=== PATIENT | female | born 1930 | race Caucasian/White ===

== ENCOUNTER 2016-11-27 16:49 | Outpatient (CLI) ==
[2013-07-14 00:04] VITALS: BMI 40.0
== END 2016-11-27 16:50 | disposition home or self-care (01) ==
LOC: CAR 16:49
PROVIDERS: ATTEND Internal Medicine
DX: G47.30 Sleep apnea, unspecified (principal)
CPT/HCPCS: 95810

== ENCOUNTER 2016-12-26 14:23 | Outpatient (CLI) ==
[2013-07-14 00:04] VITALS: BMI 40.0
== END 2016-12-26 14:24 | disposition home or self-care (01) ==
LOC: CAR 14:23
PROVIDERS: ATTEND Internal Medicine Interventional Cardiology
DX: I48.91 Unspecified atrial fibrillation (principal)
CPT/HCPCS: 93005; 93010

== ENCOUNTER 2017-01-01 15:14 | Outpatient (CLI) ==
[2013-07-14 00:04] VITALS: BMI 40.0
== END 2017-01-01 15:15 | disposition home or self-care (01) ==
LOC: CAR 15:14
PROVIDERS: ATTEND Internal Medicine Pulmonary Disease
DX: G47.33 Obstructive sleep apnea (adult) (pediatric) (principal)
CPT/HCPCS: 95811

== ENCOUNTER 2017-02-28 12:27 | Outpatient (CLI) ==
[2013-07-14 00:04] VITALS: BMI 40.0
--- NOTE | 2017-02-28 13:59 | US ---
EXAM: Bilateral lower extremity venous doppler. HISTORY: Bilateral leg pain and swelling, greater on the right. COMPARISON: 07/14/2013. TECHNIQUE: Multiple grayscale and color doppler images were obtained. FINDINGS: There is normal flow, compressibility and augmentation of flow within the right and left c ommon femoral, greater saphenous, profunda, femoral, popliteal, posterior tibial, anterior tibial and peroneal veins. IMPRESSION: No evidence for right or left lower extremity deep vein thrombosis at the levels examined.
== END 2017-02-28 12:28 | disposition home or self-care (01) ==
LOC: RAD 12:27
PROVIDERS: ATTEND Internal Medicine
DX: M79.604 Pain in right leg (principal); M79.605 Pain in left leg; M79.89 Other specified soft tissue disorders

== ENCOUNTER 2017-03-12 08:55 | Outpatient (CLI) ==
[2013-07-14 00:04] VITALS: BMI 40.0
[2017-03-12 09:17] LABS: BASOPHILS # (AUTO) 0.1 K/uL (0-0.2); BASOPHILS % (AUTO) 0.6 % (0.0-3.0); EOSINOPHILS # (AUTO) 0.2 K/ul (0.0-0.7); EOSINOPHILS % (AUTO) 2.1 % (0.0-7.0); HEMATOCRIT 33.7 % (37.0-47.0); HEMOGLOBIN 10.7 g/dl (12.0-16.0); IMMATURE GRANULOCYTE % (AUTO) 0.5 % (0.0-5.0); LYMPHOCYTES # (AUTO) 0.8 K/uL (0.60-3.4); LYMPHOCYTES % (AUTO) 10.5 (10.0-50.0); MEAN CORPUSCULAR HEMOGLOBIN 24.9 pg (27.0-31.0); MEAN CORPUSCULAR HGB CONC 31.8 (31.8-35.4); MEAN CORPUSCULAR VOLUME 78.4 fl (81.0-99.0); MONOCYTES # (AUTO) 0.9 K/uL (0.4-2.0); MONOCYTES % (AUTO) 11.4 (0-10); NEUTROPHILS # (AUTO) 5.8 K/ul (2.0-6.9); NEUTROPHILS % (AUTO) 74.9; PLATELET COUNT 217 10^3/uL (140-440); WHITE BLOOD COUNT 7.71 K/ul (4.6-10.2)
[2017-03-12 09:35] LABS: ALBUMIN 3.4 g/dL (3.4-5.0); ALBUMIN/GLOBULIN RATIO 1.21; ANION GAP 13.5; BILIRUBIN,TOTAL 0.48 mg/dL (0.00-1.20); CALCIUM 9.2 mg/dL (8.2-10.2); POTASSIUM 4.5 mmol/L (3.5-5.10); TOTAL PROTEIN 6.2 g/dL (5.8-8.1)
[2017-03-12 15:28] LABS: FERRITIN 21.06 ng/mL (4.63-204.00)
== END 2017-03-12 08:56 | disposition home or self-care (01) ==
LOC: LAB 08:55
PROVIDERS: ATTEND Internal Medicine Hematology & Oncology
DX: C18.9 Malignant neoplasm of colon, unspecified (principal); D50.9 Iron deficiency anemia, unspecified
CPT/HCPCS: 36415; 80053; 82378; 82728; 83540; 83550; 85025

== ENCOUNTER 2017-05-24 12:58 | Inpatient (IN) ==
[2017-05-24] MEDS ORDERED: DECADRON 4 MG/ML SDV IM STA (13:58)
[2017-05-24] MEDS ORDERED: XOPENEX 1.25 MG NEB PRN (14:01)
[2017-05-24] MEDS ORDERED: MORPHINE 4 MG/ML VIAL IVP PRN (14:08)
[2017-05-24] MEDS ORDERED: NITROSTAT SL PRN (14:08)
[2017-05-24] MEDS ORDERED: TYLENOL PO PRN ×2 (14:08→17:00)
[2017-05-24] MEDS ORDERED: ATROPINE SULFATE PFS IVP PRN (14:08)
[2017-05-24] MEDS ORDERED: VISTARIL INJ IM PRN (14:08)
[2017-05-24 14:57] VITALS: BMI 42.5
[2017-05-24] MEDS: LASIX IVP SCH (15:04)
[2017-05-24] MEDS ORDERED: PROAIR HFA IH PRN (15:14)
[2017-05-24] MEDS ORDERED: ULTRAM PO PRN (15:14)
--- NOTE | 2017-05-24 16:30 | DI ---
EXAM: Chest one view, frontal view only. HISTORY: Shortness of breath. COMPARISON: 04/27/2013. FINDINGS: Cardiac silhouette is enlarged although may be accentuated by portable technique. No vasc ular congestion seen. The lungs are grossly clear although evaluation of the left base and medial ri ght lung base is limited by portable technique. No large pleural effusion or pneumothorax identified . Hiatal hernia noted. No acute osseous abnormality is seen. IMPRESSION: No acute process within limitations of portable technique. If symptoms persist, PA and lateral chest radiographs would be recommended.
[2017-05-24] MEDS: XOPENEX 1.25 MG NEB SCH ×2 (16:57→22:56)
[2017-05-24] MEDS: XARELTO PO SCH (18:11)
[2017-05-24] MEDS ORDERED: ACETAMINOPHEN PO SCH (21:00)
[2017-05-24] MEDS ORDERED: VITAMIN D3 PO SCH (21:00)
[2017-05-24] MEDS ORDERED: NON-FORMULARY MEDICATION (Gabapentin [Gabapentin] 600 MG) PO SCH (21:00)
[2017-05-24] MEDS ORDERED: DIPHENHYDRAMINE PO SCH (21:00)
[2017-05-24] MEDS ORDERED: CALCIUM CARBONATE PO SCH (21:00)
[2017-05-24] MEDS ORDERED: [UNRECOGNIZED DRUG - OTHER] PO SCH (21:00)
[2017-05-24] MEDS ORDERED: [UNRECOGNIZED DRUG - OTHER] PO SCH (21:00)
[2017-05-24] MEDS: SYMBICORT 160-4.5 MCG INHALER IH SCH (22:32)
[2017-05-24] MEDS: BALANCED B-100 PO SCH (22:33)
[2017-05-24] MEDS: BENADRYL PO SCH (22:34)
[2017-05-24] MEDS: CALCIUM 500 + VIT D 200 MG TABLET PO SCH (22:34)
[2017-05-24] MEDS: NEURONTIN PO SCH (22:34)
[2017-05-24] MEDS: TYLENOL PO SCH (22:34)
[2017-05-24] MEDS: [UNRECOGNIZED DRUG - OTHER] PO SCH (22:35)
[2017-05-24] MEDS: GLUCOSAMINE PO SCH (22:35)
[2017-05-24] MEDS: D3 PO SCH (22:35)
[2017-05-24] MEDS: BOSWELLIA SERRA PO SCH (22:35)
[2017-05-25] MEDS: XOPENEX 1.25 MG NEB SCH ×4 (04:13→23:56)
[2017-05-25] MEDS: PRILOSEC PO SCH (06:22)
[2017-05-25] MEDS: LASIX IVP SCH (06:22)
[2017-05-25] MEDS: SYNTHROID PO SCH (06:23)
[2017-05-25] MEDS ORDERED: ASPIRIN EC PO SCH (08:00)
[2017-05-25] MEDS ORDERED: RIVAROXABAN PO SCH (09:00)
[2017-05-25] MEDS ORDERED: NON-FORMULARY MEDICATION (Omeprazole [Prilosec] 40 MG) PO SCH (09:00)
[2017-05-25] MEDS ORDERED: ACETAMINOPHEN 1000 MG PO SCH (09:00)
[2017-05-25] MEDS ORDERED: CALCIUM POLYCARBOPHIL 625 MG PO SCH (09:00)
[2017-05-25] MEDS ORDERED: NON-FORMULARY MEDICATION (Ascorbic Acid [Vitamin C] 1,000 MG) PO SCH (09:00)
[2017-05-25] MEDS ORDERED: NON-FORMULARY MEDICATION (Levothyroxine Sodium [Tirosint] 100 MCG) PO SCH (09:00)
[2017-05-25] MEDS: VITAMIN C PO SCH (10:21)
[2017-05-25] MEDS: SYMBICORT 160-4.5 MCG INHALER IH SCH ×2 (10:21→21:21)
[2017-05-25] MEDS: ZEBETA PO SCH (10:22)
[2017-05-25] MEDS: CALCIUM 500 + VIT D 200 MG TABLET PO SCH ×2 (10:22→21:13)
[2017-05-25] MEDS: CARDIZEM CD PO SCH (10:22)
[2017-05-25] MEDS: NEURONTIN PO SCH ×2 (10:23→21:14)
[2017-05-25] MEDS: ZYRTEC PO SCH (10:23)
[2017-05-25] MEDS: TYLENOL PO SCH ×2 (10:23→21:14)
[2017-05-25] MEDS: SPIRIVA IH SCH (10:26)
[2017-05-25] MEDS: METAMUCIL PO SCH (14:36)
[2017-05-25] MEDS: XARELTO PO SCH (17:03)
[2017-05-25] MEDS: [UNRECOGNIZED DRUG - OTHER] PO SCH (21:13)
[2017-05-25] MEDS: GLUCOSAMINE PO SCH (21:13)
[2017-05-25] MEDS: BALANCED B-100 PO SCH (21:13)
[2017-05-25] MEDS: D3 PO SCH (21:13)
[2017-05-25] MEDS: BENADRYL PO SCH (21:13)
[2017-05-25] MEDS: BOSWELLIA SERRA PO SCH (21:13)
[2017-05-26] MEDS: XOPENEX 1.25 MG NEB SCH ×4 (04:16→23:19)
[2017-05-26] MEDS: LASIX IVP SCH (06:01)
[2017-05-26] MEDS: PRILOSEC PO SCH (06:01)
[2017-05-26] MEDS: SYNTHROID PO SCH (06:01)
[2017-05-26] MEDS: CARDIZEM CD PO SCH (09:29)
[2017-05-26] MEDS: CALCIUM 500 + VIT D 200 MG TABLET PO SCH ×2 (09:29→22:18)
[2017-05-26] MEDS: ZEBETA PO SCH (09:29)
[2017-05-26] MEDS: NEURONTIN PO SCH ×2 (09:30→22:18)
[2017-05-26] MEDS: VITAMIN C PO SCH (09:30)
[2017-05-26] MEDS: ZYRTEC PO SCH (09:30)
[2017-05-26] MEDS: SPIRIVA IH SCH (09:31)
[2017-05-26] MEDS: SYMBICORT 160-4.5 MCG INHALER IH SCH ×2 (09:31→22:21)
[2017-05-26] MEDS: TYLENOL PO SCH ×2 (09:31→22:20)
[2017-05-26] MEDS: METAMUCIL PO SCH (11:55)
[2017-05-26] MEDS: XARELTO PO SCH (17:05)
[2017-05-26] MEDS: BENADRYL PO SCH (22:18)
[2017-05-26] MEDS: BALANCED B-100 PO SCH (22:18)
[2017-05-26] MEDS: BOSWELLIA SERRA PO SCH (22:21)
[2017-05-26] MEDS: GLUCOSAMINE PO SCH (22:21)
[2017-05-26] MEDS: D3 PO SCH (22:21)
[2017-05-26] MEDS: [UNRECOGNIZED DRUG - OTHER] PO SCH (22:21)
[2017-05-27] MEDS: XOPENEX 1.25 MG NEB SCH ×4 (05:35→22:19)
[2017-05-27] MEDS: PRILOSEC PO SCH (05:50)
[2017-05-27] MEDS: SYNTHROID PO SCH (05:50)
[2017-05-27] MEDS: LASIX IVP SCH (05:50)
[2017-05-27] MEDS: NEURONTIN PO SCH ×2 (08:57→20:57)
[2017-05-27] MEDS: VITAMIN C PO SCH (08:57)
[2017-05-27] MEDS: ZYRTEC PO SCH (08:58)
[2017-05-27] MEDS: TYLENOL PO SCH ×2 (08:58→20:58)
[2017-05-27] MEDS: ZEBETA PO SCH (08:58)
[2017-05-27] MEDS: CALCIUM 500 + VIT D 200 MG TABLET PO SCH ×2 (08:58→20:57)
[2017-05-27] MEDS: CARDIZEM CD PO SCH (08:58)
[2017-05-27] MEDS: SYMBICORT 160-4.5 MCG INHALER IH SCH ×2 (08:58→20:57)
[2017-05-27] MEDS: SPIRIVA IH SCH (09:00)
[2017-05-27] MEDS: METAMUCIL PO SCH ×2 (12:40→14:09)
[2017-05-27] MEDS: XARELTO PO SCH (16:16)
[2017-05-27] MEDS: GLUCOSAMINE PO SCH (20:59)
[2017-05-27] MEDS: BOSWELLIA SERRA PO SCH (20:59)
[2017-05-27] MEDS: [UNRECOGNIZED DRUG - OTHER] PO SCH (20:59)
[2017-05-27] MEDS: BENADRYL PO SCH (20:59)
[2017-05-27] MEDS: D3 PO SCH (20:59)
[2017-05-27] MEDS: BALANCED B-100 PO SCH (21:02)
[2017-05-28] MEDS: XOPENEX 1.25 MG NEB SCH ×2 (05:05→11:11)
[2017-05-28] MEDS: SYNTHROID PO SCH ×2 (05:28→06:42)
[2017-05-28] MEDS: PRILOSEC PO SCH ×2 (05:28→06:42)
[2017-05-28] MEDS: LASIX IVP SCH ×2 (05:28→06:41)
[2017-05-28] MEDS: TYLENOL PO SCH (09:08)
[2017-05-28] MEDS: VITAMIN C PO SCH (09:08)
[2017-05-28] MEDS: SPIRIVA IH SCH (09:08)
[2017-05-28] MEDS: CALCIUM 500 + VIT D 200 MG TABLET PO SCH (09:08)
[2017-05-28] MEDS: NEURONTIN PO SCH (09:08)
[2017-05-28] MEDS: ZYRTEC PO SCH (09:08)
[2017-05-28] MEDS: CARDIZEM CD PO SCH (09:08)
[2017-05-28] MEDS: ZEBETA PO SCH (09:08)
[2017-05-28] MEDS: SYMBICORT 160-4.5 MCG INHALER IH SCH (09:08)
[2017-05-28 09:46] VITALS: BP 101/36; TEMP 98.1
--- NOTE | 2017-05-28 10:43 | CM.DICTOOL ---
ADMISSION: 05/24/17 12:58 DISCHARGE: 05/28/17 FINAL DIAGNOSIS CHF HYPERTENSION ATRIAL FIBRILLATION COPD HYPERLIPIDEMIA OSTEOPENIA NEUROPATHY OSTEOARTHRITIS GERD ANXIETY SLEEP APNEA, C-PAP COLORECTAL CANCER, 2007 HEMICOLECTOMY, RIGHT 2007 LAST VITALS Temp Pulse Resp BP Pulse Ox 98.1 F 77 20 101/36 L 98 05/28/17 09:46 05/28/17 09:46 05/28/17 09:46 05/28/17 09:46 05/28/17 09:46 ACTIVE HOME MEDICATIONS Acetaminophen (Tylenol) 1,000 mg PO DAILY [facility] Last Admin: 05/28/17 09:08 Dose: 1,000 mg Acetaminophen (Tylenol) 500 mg PO BEDTIME [facility] Last Admin: 05/27/17 20:58 Dose: 500 mg Acetaminophen (Tylenol) 650 mg PO Q4H PRN PRN Reason: Headache Albuterol Sulfate (Proair Hfa) 2 puff IH QID PRN PRN Reason: SOA/wheezing Albuterol Sulfate 0.083% nebs INH QID PRN Ascorbic Acid (Vitamin C) 1,000 mg PO DAILY [facility] Last Admin: 05/28/17 09:08 Dose: 1,000 mg Bisoprolol Fumarate (Zebeta) 10 mg PO DAILY [facility] Last Admin: 05/28/17 09:08 Dose: 10 mg Budesonide/Formoterol Fumarate (Symbicort 160-4.5 Mcg Inhaler) 2 puff IH BID [facility] Last Admin: 05/28/17 09:08 Dose: 2 puff Calcium/Vitamin D (Calcium 500 + Vit D 200 Mg Tablet) 1 each PO BID [facility] Last Admin: 05/28/17 09:08 Dose: 1 each Calcium Polycarbohpil (Fibertab) 625mg PO Daily Cetirizine HCl (Zyrtec) 10 mg PO DAILY [facility] Last Admin: 05/28/17 09:08 Dose: 10 mg Diltiazem HCl (Cardizem Cd) 120 mg PO DAILY [facility] Last Admin: 05/28/17 09:08 Dose: 120 mg Diphenhydramine HCl (Benadryl) 25 mg PO BEDTIME [facility] Last Admin: 05/27/17 20:59 Dose: 25 mg Gabapentin (Neurontin) 600 mg PO BID [facility] Last Admin: 05/28/17 09:08 Dose: 600 mg Levothyroxine Sodium (Synthroid) 100 mcg PO QDAC [facility] Last Admin: 05/28/17 06:42 Dose: 100 mcg Non-Formulary Medication (Glucosamine/D3/Boswellia Becca [Glucosamine Complex Tablet]) 1,500 mg PO BEDTIME [facility] Last Admin: 05/27/17 20:59 Dose: Not Given Omeprazole (Prilosec) 40 mg PO QDAC [facility] Last Admin: 05/28/17 06:42 Dose: 40 mg Rivaroxaban (Xarelto) 15 mg PO QPM [facility] Last Admin: 05/27/17 16:16 Dose: 15 mg Tiotropium Carlin (Spiriva) 1 cap IH DAILY [facility] Last Admin: 05/28/17 09:08 Dose: 1 cap Tramadol HCl (Ultram) 50 mg PO BID PRN PRN Reason: pain Vitamin B Complex (Balanced B-100) 1 tab PO BEDTIME [facility] Last Admin: 05/27/17 21:02 Dose: 1 tab ALLERGIES adhesive Adverse Reaction (Verified 07/13/13 23:09) Penicillins Adverse Reaction (Verified 04/27/13 22:31) sulfamethoxazole [From Bactrim] Adverse Reaction (Verified 04/27/13 22:31) trimethoprim [From Bactrim] Adverse Reaction (Verified 04/27/13 22:31) NEW PRESCRIPTIONS: NEW MEDICATIONS: NEW MEDICATIONS: 1. LASIX 2OMG TAKE 1 TABLET DAILY 2. K-TAB 20MEQ TAKE 1 TABLET DAILY 3. BISOPROLOL 10MG TAKE 1 TABLET DAILY. SMOKING: N/A DISEASE SPECIFIC EDUCATION: CHF MEDICATIONS DIET ACTIVITY IMPORTANCE OF ELEVATING LEGS, MONITORING WEIGHT, AVOIDING SALT, TAKING MEDICATIONS PRESCRIBED LAB REVIEW: 05/28/17 04:10 05/28/17 04:10 05/28/17 04:10: Sodium 139, Potassium 3.7, Chloride 98, Carbon Dioxide 33 H, Anion Gap 11.7, BUN 20 H, Creatinine 1.10, Estimated GFR (MDRD) 47.00, BUN/ Creatinine Ratio 18.18, Glucose 115, Calcium 9.8, Total Bilirubin 0.5, AST 19, ALT 20, Alkaline Phosphatase 51 L, Total Protein 6.2, Albumin 3.4, Globulin 2.8 , Albumin/Globulin Ratio 1.21 05/28/17 04:10: WBC 9.01, RBC 4.49, Hgb 13.0, Hct 39.9, MCV 88.9, MCH 29.0, MCHC 32.6, RDW Coeff of Bk 19.3 H, Plt Count 187, Immature Gran % (Auto) 0.4, Neut % (Auto) 72.3, Lymph % (Auto) 12.3, [place] % (Auto) 12.1 H, Eos % (Auto) 2.3 , Baso % (Auto) 0.6, Immature Gran # (Auto) 0.0, Neut # 6.5, Lymph # 1.1, Fillmore # 1.1, Eos # 0.2, Baso # 0.1 PLAN: DISCHARGE HOME TODAY. CONTINUE HOME MEDICATIONS PER NURSING SHEETS EXCEPT: 1. STOP THE BISOPROLOL/HYDROCHLORTHIAZIDE (BISOPROLOL-HCTZ). NEW MEDICATIONS: 1. LASIX 2OMG TAKE 1 TABLET DAILY 2. K-TAB 20MEQ TAKE 1 TABLET DAILY 3. BISOPROLOL 10MG TAKE 1 TABLET DAILY. DIET: CARDIAC DIET; ACTIVITY: GRADUALLY INCREASE ACTIVITY. AVOID EXTREME COLD AND CROWDS. KEEP LEGS ELEVATED MUCH POSSIBLE. FOLLOW UP WITH DR. ORTIZ ON SundayMay AT 1145AM. IF UNABLE TO KEEP THIS APPOINTMENT PLEASE CALL TO RESCHEDULE AT [phone]. ALERT AND ORIENTED X 4. [place]. DR. ORTIZ IN TO SEE PATIENT. PATIENT STATES FEELING BETTER. STATES READY TO GO HOME. PLAN OF CARE DISCUSSED PER DR. ORTIZ INCLUDING DISCHARGE, NEW MEDICATIONS AND FOLLOW UP. PATIENT VERBALIZES UNDERSTANDING AND IS AGREEABLE. VITAL SIGNS ARE STABLE. IS AFEBRILE. POX 95% ON 2L/C. HEART TONES ARE IRREGULAR WITH TELEMETRY REVEALING AFIB. LUNGS HAVE A FAINT WHEEZE OCCASIONALLY. DYSPNEIC WITH ACTIVITY. HAS NON-PRODUCTIVE COUGH. IS UNABLE TO LIE FLAT. ABDOMEN IS SOFT, NON-TENDER WITH BOWEL SOUNDS POSITIVE IN ALL 4 QUADS. LAST BM DOCUMENTED 05/27/17. PEDAL PULSES ARE POSITIVE WITH NON- PITTING EDEMA TO BILATERAL LOWER EXTREMITIES. HAS SCATTERED SCRATCHES TO BILATERAL UPPER AND LOWER EXTREMITIES THAT SHE STATES IF FROM HER DOG. HAS SALINE LOCK TO LEFT HAND SITE IS CLEAR. IS A FALL RISK WITH FALL PRECAUTIONS IN USE. IS STAND BY ASSIST WITH USE OF ROLLING WALKER WITH STEADY SLOW GAIT. DR. GUMARO ORTIZ MD Reza NICK APRN
--- NOTE | 2017-05-29 07:21 | PN ---
DATE OF SERVICE: 05/25/17 SUBJECTIVE: The patient was hospitalized yesterday with leg swelling, shortness of breath, PND and orthopnea. The patient's BNP with 395. The patient on IV Lasix has improved a lot. The swelling in the legs has practically resolved with trace edema left. No evidence of any oozing or water from any of the legs. She doesn' t have any orthopnea anymore. She feels and talks full sentences. PHYSICAL EXAMINATION: HEENT: Head normocephalic, atraumatic. Eyes: Extraocular muscles are intact. Pupils are equal, round and reactive to light and accommodation. Ears: No lesions. Nose appeared normal. Throat: No exudate or erythema. NECK: Supple. No JVD, no carotid bruit. No lymphadenopathy or thyromegaly. LUNGS: Clear to auscultation. Percussion note normal. Chest symmetrical. HEART: S1, S2, no S3. Grade I/ systolic murmurs. 80-90 per minute. No cyanosis or clubbing. No ascites. Pulses: Dorsalis pedis and posterior tibial pulses +1 to +2 both sides. ABDOMEN: Soft. Nontender. Bowel sounds active. No CVA tenderness. No mass felt. EXTREMITIES: No edema. Full range of motion of all extremities, equal. NEUROLOGIC: No focal deficit. Cranial nerves II through XII are grossly intact. No headache, no double vision or headache. SKIN: Not dry. Intact. Turgor - normal. LYMPHATIC: No palpable lymph nodes/no lymphedema. MUSCULOSKELETAL: Normal joints with no swelling. Muscle tone is normal. ASSESSMENT: 1. CHF under control 2. Leg edema resolved 3. COPD under control PLAN: 1. Continue Lasix 2. Will do echocardiogram to evaluate LV function 3. CHF education carried out. CONDITION: Stable. TIME SPENT: More than 30 minutes. Plan and coordination of the patient's care discussed in the presence of nurse. RUDY
--- NOTE | 2017-05-29 11:08 | PN ---
DATE OF SERVICE: 05/27/17 SUBJECTIVE: 87 year old white female hospitalized with CHF, shortness of breath, fluid retention and atrial fibrillation with increased ventricular response. The patient's condition has steadily improved. REVIEW OF SYSTEMS: CONSTITUTIONAL: No night sweats. No fatigue, malaise, lethargy. No fever or chills. HEENT: Eyes: No visual changes. No eye pain. No eye discharge. ENT: No runny nose. No epistaxis. No sinus pain. No sore throat. No odynophagia. No congestion. RESPIRATORY: No cough, no congestion. No hemoptysis. No shortness of breath. CARDIOVASCULAR: No angina symptoms. No CHF symptoms. No atypical chest pain for CAD. No palpitations. No orthopnea. GASTROINTESTINAL: No abdominal pain. No nausea or vomiting. No diarrhea or constipation. No hematemesis. No hematochezia. GENITOURINARY: No urgency. No frequency. No dysuria. No hematuria. No obstructive symptoms. No discharge. No pain. No significant abnormal bleeding. MUSCULOSKELETAL: No musculoskeletal pain; no joint swelling. NEUROLOGICAL: No headache. No neck pain. No syncope. No seizures. No dizziness. PSYCHIATRIC: Not anxious. No depression. No suicidal thoughts. No homicidal thoughts. SKIN: No rash. No lesions. No wounds. ENDOCRINE: No unexplained weight loss. No weight gain. HEMATOLOGIC/LYMPHATIC: No anemia. No purpura. No petechiae. No prolonged or excessive bleeding. No palpable lymph nodes. PHYSICAL EXAMINATION: GENERAL: The patient is oriented to time, place and person. VITAL SIGNS: Temperature 97.4, pulse 100, respiratory rate 18, blood pressure 103/60 and pulse ox 97%. HEENT: Head normocephalic, atraumatic. Eyes: Extraocular muscles are intact. Pupils are equal, round and reactive to light and accommodation. Ears: No lesions. Nose appeared normal. Throat: No exudate or erythema. NECK: Supple. No JVD, no carotid bruit. No lymphadenopathy or thyromegaly. LUNGS: Decreased breath sounds but clear to auscultation. Percussion note normal. Chest symmetrical. HEART: S1, S2, no S3. No murmurs. No cyanosis or clubbing. No ascites. Pulses: Dorsalis pedis and posterior tibial pulses +1 to +2 both sides. ABDOMEN: Soft. Nontender. Bowel sounds active. No CVA tenderness. No mass felt. EXTREMITIES: No edema. Full range of motion of all extremities, equal. NEUROLOGIC: No focal deficit. Cranial nerves II through XII are grossly intact. No headache, no double vision or headache. SKIN: Not dry. Intact. Turgor - normal. LYMPHATIC: No palpable lymph nodes/no lymphedema. MUSCULOSKELETAL: Normal joints with no swelling. Muscle tone is normal. LABS: Hgb 12.3, hct 37, WBC 9,700 normal differential ASSESSMENT: 1. CHF, resolved 2. Atrial fibrillation under control 3. Shortness of breath, resolved 4. Leg edema resolved PLAN: 1. Discharge the patient home 2. Will do echo before discharge 3. CHF education carried out 4. The patient's other problem is her BMI is 42 which is morbidly obese. Advised to lose weight. Weight loss diet discussed. 5. The daughter was explained about all medications and side effects. 6. The patient needs to be on Xarelto 20mg daily not 15mg twice a day CONDITION: Stable. TIME SPENT: More than 30 minutes. Plan and coordination of the patient's care discussed in the presence of nurse. RUDY
--- NOTE | 2017-05-29 15:27 | HP ---
DATE OF SERVICE: 05/24/17 HISTORY OF PRESENT ILLNESS: 87-year-old female that is more short of breath, right leg weeping that started last night, times several days; gained 61 lbs according to scale at home in the past 2 to 3 days, orthopnea (3 pillows). PAST MEDICAL HISTORY: CHF Hypertension COPD Hyperlipidemia Osteopenia Neuropathy Osteoarthritis GERD Anxiety Sleep apnea, CPAP Colorectal cancer, 2007 PAST SURGICAL HISTORY: Hemicolectomy, right 2007 Cataracts, bilateral, 2002 Partial hysterectomy Bilateral knee replacements 2011 Right HIp replacement REVIEW OF SYSTEMS: CONSTITUTIONAL: Positive for fatigue. No fever. HEENT: No sinus drainage, no sore throat. RESPIRATORY: Mild cough. No hemoptysis. CARDIOVASCULAR: Positive for shortness of breath. No atypical chest pain for coronary artery disease. No angina, CHF symptoms or palpitations. GASTROINTESTINAL: No melena or abdominal pain. No GERD. GENITOURINARY: No hematuria, no polyuria. SETUP OPERATOR: No blackout, no dizziness, no headache, no double vision. MUSCULOSKELETAL: Osteoarthritic pain. ENDOCRINE: Weight gain of 6 lbs. SKIN: Not dry, no rash. PSYCHIATRIC: Not anxious, no depression, no suicidal thoughts, no homicidal thoughts. SOCIAL HISTORY: Nonsmoker. . No alcohol use. FAMILY HISTORY: Hypertension - all family; Brother with lung cancer, renal disease; diabetes in grandmother and siblings, hypothyroidism in mother. Family history of breast, colon, prostate and lung cancer. MEDICATIONS: Tylenol p.r.n. one at night p.r.n. Bisoprolol-Hydrochlorothiazide 5-6.25 mg tablet Amiodarone 200 mg twice daily Xarelto 15 mg tablet one tablet p.o. two times per day Diltiazem HCI 120 mg one p.o. one time per day Spiriva with Handi-Haler 18 mcg capsule with inhalation device one capsule once daily Symbicort 160-4.5 mcg/actuation two puffs two times per day in the morning and evening Vitamin D Synthroid 50 mcg one tablet 50 mcg p.o. once daily ProAir HFA 90 mcg/actuation HFA two puffs by inhalation route every 4-6 hours as needed Omeprazole 40 mg one p.o. once daily before a meal Nebulizer treatment q.i.d. Albuterol ALLERGIES: PENICILLINS, ADHESIVE, SULFAMETHOXAZOLE, TRIMETHOPRIM PHYSICAL EXAMINATION: V/S: Pulse 100, B/P 120/70, temperature 96.8, 02 sat 91% on 02 at 2L. Height 5'5 ", BMI 252, weight unable. GENERAL APPEARANCE: Oriented times three. HEENT: Normal. NECK: 1 cm JVP, no bruits. RESPIRATORY: Lungs have decreased breath sounds with creps at bases. CARDIOVASCULAR: S1, S2, no S3, atrial fib. No murmurs. No cyanosis, clubbing. No ascites. GI/ABDOMEN: No tenderness. Bowel sounds are active. EXTREMITIES: Edema +1 bilateral. Small blister, weeping clear liquid. Pulses +1 , equal. SETUP OPERATOR: Deep tendon reflexes, sensory, motor and gait all normal. RECTAL/PELVIC: Refused colonoscopy screening. Pelvic:Partial hysterectomy ASSESSMENT: 1. CHF 2. Atrial fibrillation with RVR 3, Hypertension 4. COPD 5. Hyperlipidemia 6. Osteopenia - neuropathy 7. Osteoarthritis 8. Right leslie colectomy 9. Anxiety 10. Cardioversion times three 11. GERD 12. Sleep apnea on CPAP 13. CHF PLAN: 1. Admit with routine telemetry orders 2. Lasix 40 mg IV now and a.m. 3. Weigh daily 4. Elevate legs 5. CHF education carried out 6. Continue all medications 7. D/C HCTZ 8. ABG with oxygen 9. PFT on 03/26/16 10. 1/2 cc Decadron IM today 11. BNP 12. T4, TSH 13. Nebs q.i.d. p.r.n. with Xopenex TIME SPENT: More than 70 minutes. MTDD
--- NOTE | 2017-05-30 14:25 | ECHO2D ---
Date of Exam: 05/28/17 Ordering Physician: GUMARO ORTIZ Room #: 110 Reason for Echo: CHF, ATRIAL FIBRILLATION M-Mode Normal Adult Results LV Dimensions Normal Adult Results AoV Opening excursions >1.6 >1.6 LVEDD-base- 3.5-5.8 4.7 Ao root dimensions 2.0-3.7 3.1 LVESD-base- 3.1-4.6 L. Atrium dimensions 1.9-3.8 5.0 Post. Wall thickness 0.8-1.1 1.1 IV septum (thickness) 0.7-1.2 1.2 Post. Wall excursion 0.72-1.3 NORMAL Septal motion 0.2 Systolic motion R. Ventricular cavity 1.5-2.0 NORMAL LVEF 60% 43% Paradoxical septal wall motion NORMAL 2-D : HYPOKINETIC SEPTUM, ENLARGED LEFT ATRIAL CAVITY--NO EFFUSION, NO THROMBUS , NORMAL VALVES, CALCIFIC MITRAL VALVE ANNULUS M-MODE: MV: CALCIFIC MITRAL VALVE ANNULUS AV: NORMAL TV: NORMAL PV: CHAMBER SIZE: ENLARGED LEFT ATRIAL CAVITY WALL MOTION: HYPOKINETIC SEPTUM PERICARDIUM: NORMAL INTERPRETATION: 1. LEFT VENTRICULAR HYPERTROPHY BORDERLINE 2. HYPOKINETIC SEPTUM WITH LEFT VENTRICULAR EJECTION FRACTION 43% 3. ENLARGED LEFT ATRIAL CAVITY 4. NORMAL VALVES MTDD
--- NOTE | 2017-05-30 15:53 | PN ---
DATE OF SERVICE: 05/26/17 SUBJECTIVE: 87 year old white female hospitalized with congestive heart failure and shortness of breath and leg edema. The patient's condition has remarkably improved. Bronchitis, chronic lung problems are much better with steroids. IV Lasix has been working good with practically no leg edema. PHYSICAL EXAMINATION: GENERAL: The patient is oriented to time, place and person. HEENT: Head normocephalic, atraumatic. Eyes: Extraocular muscles are intact. Pupils are equal, round and reactive to light and accommodation. Ears: No lesions. Nose appeared normal. Throat: No exudate or erythema. NECK: Supple. No JVD, no carotid bruit. No lymphadenopathy or thyromegaly. LUNGS: Decreased breath sounds, but more air entry. A few crepitations at the bases, dry. Percussion note normal. Chest symmetrical. HEART: S1, S2, no S3. No murmurs. No cyanosis or clubbing. No ascites. Pulses: Dorsalis pedis and posterior tibial pulses +1 to +2 both sides. ABDOMEN: Soft. Nontender. Bowel sounds active. No CVA tenderness. No mass felt. EXTREMITIES: Trace pedal edema. Full range of motion of all extremities, equal. NEUROLOGIC: No focal deficit. Cranial nerves II through XII are grossly intact. No headache, no double vision or headache. SKIN: Not dry. Intact. Turgor - normal. No ulcers oozing or fluid noted. LYMPHATIC: No palpable lymph nodes/no lymphedema. MUSCULOSKELETAL: Normal joints with no swelling. Muscle tone is normal. LABS: Hemoglobin 12.7, hematocrit 38, WBC 11,000 with normal differential. Creatinine 0.9, BUN 19, potassium 3.8. ASSESSMENT: 1. CONGESTIVE HEART FAILURE HAS RESOLVED. 2. LEG EDEMA HAS RESOLVED. 3. ATRIAL FIBRILLATION WITH NORMAL VENTRICULAR RESPONSE PLAN: 1. Continue IV Lasix. 2. Continue Steroids. 3. Education about CHF carried out. The daughter came and I explained to her all of the diagnosis and we will undergo and echocardiogram. CONDITION: Improving. TIME SPENT: More than 30 minutes. Plan and coordination of the patient's care discussed in the presence of nurse. RUDY
--- NOTE | 2017-05-31 10:07 | PN ---
DATE OF SERVICE: 05/28/17 SUBJECTIVE: 87 year old white female hospitalized with shortness of breath, congestive heart failure type of symptoms and leg edema. The patient's condition has improved remarkably. The patient is feeling a lot better. REVIEW OF SYSTEMS: CONSTITUTIONAL: No night sweats. No fatigue, malaise, lethargy. No fever or chills. HEENT: Eyes: No visual changes. No eye pain. No eye discharge. ENT: No runny nose. No epistaxis. No sinus pain. No sore throat. No odynophagia. No congestion. RESPIRATORY: No cough, no congestion. No hemoptysis. No shortness of breath. CARDIOVASCULAR: No angina symptoms. No CHF symptoms. No atypical chest pain for CAD. No palpitations. No orthopnea. GASTROINTESTINAL: No abdominal pain. No nausea or vomiting. No diarrhea or constipation. No hematemesis. No hematochezia. GENITOURINARY: No urgency. No frequency. No dysuria. No hematuria. No obstructive symptoms. No discharge. No pain. No significant abnormal bleeding. MUSCULOSKELETAL: No musculoskeletal pain; no joint swelling. NEUROLOGICAL: No headache. No neck pain. No syncope. No seizures. No dizziness. PSYCHIATRIC: Not anxious. No depression. No suicidal thoughts. No homicidal thoughts. SKIN: No rash. No lesions. No wounds. ENDOCRINE: No unexplained weight loss. No weight gain. HEMATOLOGIC/LYMPHATIC: No anemia. No purpura. No petechiae. No prolonged or excessive bleeding. No palpable lymph nodes. PHYSICAL EXAMINATION: GENERAL: The patient is oriented to time, place and person. VITAL SIGNS: Temperature 97, pulse 100 per minute, irregular, respiratory rate 20, blood pressure 137/79, pulse ox 95%. HEENT: Head normocephalic, atraumatic. Eyes: Extraocular muscles are intact. Pupils are equal, round and reactive to light and accommodation. Ears: No lesions. Nose appeared normal. Throat: No exudate or erythema. NECK: Supple. No JVD, no carotid bruit. No lymphadenopathy or thyromegaly. LUNGS: Decreased breath sounds, but clear. Percussion note normal. Chest symmetrical. HEART: S1, S2, no S3. No murmurs. No cyanosis or clubbing. No ascites. Pulses: Dorsalis pedis and posterior tibial pulses +1 to +2 both sides. ABDOMEN: Soft. Nontender. Bowel sounds active. No CVA tenderness. No mass felt. EXTREMITIES: No edema. Full range of motion of all extremities, equal. NEUROLOGIC: No focal deficit. Cranial nerves II through XII are grossly intact. No headache, no double vision or headache. SKIN: Not dry. Intact. Turgor - normal. LYMPHATIC: No palpable lymph nodes/no lymphedema. MUSCULOSKELETAL: Normal joints with no swelling. Muscle tone is normal. The patient had an echocardiogram done this morning which showed LVH with hypokinetic septum. LA cavity is some markedly enlarged. Valves are normal with calcification of mitral valve annulus. ASSESSMENT: 1. ATRIAL FIBRILLATION UNDER CONTROL 2. CONGESTIVE HEART FAILURE UNDER CONTROL 3. HYPERTENSION 4. DYSLIPIDEMIA 5. MORBID OBESITY PLAN: 1. Discharge the patient home. 2. Discontinue Ziac and will put her on Bisoprolol. 3. Place her on Lasix 20 mg. 4. K-Tab 10 mEq daily. 5. Advised to elevate the legs. 6. CHF education carried out. CONDITION: Stable. TIME SPENT: More than 30 minutes. Plan and coordination of the patient's care discussed in the presence of nurse. RUDY
--- NOTE | 2017-05-31 10:48 | DS ---
DATE OF SERVICE: 05/28/17 FINAL DIAGNOSIS: 1. CONGESTIVE HEART FAILURE 2. HYPERTENSION 3. ATRIAL FIBRILLATION 4. CHRONIC OBSTRUCTIVE PULMONARY DISEASE 5. HYPERLIPIDEMIA 6. OSTEOPENIA 7. NEUROPATHY 8. GASTROESOPHAGEAL REFLUX DISEASE 9. ANXIETY 10. SLEEP APNEA, C-PAP 11. COLORECTAL CANCER 2006 12. HEMICOLECTOMY, RIGHT 2007 VITAL SIGNS AT DISCHARGE: Temperature 98.1, pulse 77, respiratory rate 20, blood pressure 101/36, pulse ox 98%. HOME MEDICATIONS: Tylenol 1,000 mg daily Tylenol 500 mg at bedtime Tylenol 650 mg every 4 hours prn ProAir two puffs four times daily prn Albuterol Sulfate 0.083% nebs INH four times daily prn Vitamin C 1,000 daily Zebeta 10 mg daily Symbicort 160/4.5 mcg inhaler, two puffs twice daily Calcium 500 mg plus Vitamin D 200 mg twice daily Fibertab 625 mg daily Zyrtec 10 mg daily Cardizem 120 mg daily Benadryl 25 mg at bedtime Synthroid 100 mcg daily Glucosamine/D3/Boswellia Becca 1500 mg at bedtime Omeprazole 40 mg daily Xarelto 15 mg daily in p.m. Spiriva one cap IH daily Ultram 50 mg twice daily prn Vitamin B Complex one tab at bedtime ALLERGIES: Adhesive, Penicillin, Bactrim NEW PRESCRIPTIONS: Lasix 20 mg one daily K-Tab 20 mEq one daily Bisoprolol 10 mg daily PLAN: 1. Discharge home today. 2. Stop Bisoprolol/Hydrochlorothiazide. 3. Follow up with Dr. Mcbride on Sunday at 11:45 a.m. If unable to keep this appointment, please call to reschedule at [phone]. DIET INSTRUCTIONS: Cardiac diet. ACTIVITY: Gradually increase activity. Avoid extreme cold and crowds. Keep legs elevated as much as possible. DISEASE SPECIFIC EDUCATION: Carried out about congestive heart failure, medications, diet, activity and the importance of elevating the legs, monitoring weight, avoiding salt and taking medications as prescribed. HOSPITAL COURSE: 87 year old white female hospitalized with leg edema, oozing of the fluid from the leg, orthopnea. The patient was in mild CHF. BNP on admission was 398. The patient was treated with IV Lasix, salt restriction. The patient's condition is improved. The patient was taken off of Hydrochlorothiazide. Education was carried out. Echocardiogram was done which shows hypokinetic septum with ejection fraction close to 45 to 50% with enlarged LA cavity. She was explained about these findings. The patient was discharged home in stable condition and to be followed as an outpatient. She is advised to elevate her legs higher than the hip during sleep hours and also in the afternoon. She was also advised to cut down on salt intake. Congestive heart failure symptoms discussed and if they reappear, then advised to take Lasix, an extra dose for a couple of days. If she gains more than 2 to 3 pounds , she is to report it to me. Her condition at the time of discharge was stable. TIME SPENT: More than 60 minutes. RUDY
--- NOTE | 2017-05-31 10:50 | PN ---
BILLING 05/24/17 LEVEL 5 05/25/17 INTERMEDIATE 05/26/17 INTERMEDIATE 05/27/17 INTERMEDIATE 05/28/17 D MTDD
--- NOTE | 2017-05-31 12:09 | PN ---
BILLING 05/24/17 LEVEL 5 05/25/17 INTERMEDIATE 05/26/17 INTERMEDIATE 05/27/17 INTERMEDIATE 05/28/17 D MTDD
== END 2017-05-28 11:25 | disposition home or self-care (01) | DRG 293 ==
LOC: MEDSURG A 12:58
PROVIDERS: ADMIT Internal Medicine; ATTEND Internal Medicine
DX: I50.9 Heart failure, unspecified (principal); R60.0 Localized edema; R06.02 Shortness of breath; I48.91 Unspecified atrial fibrillation; I51.89 Other ill-defined heart diseases; L98.8 Other specified disorders of the skin and subcutaneous tissue; I10 Essential (primary) hypertension; J44.9 Chronic obstructive pulmonary disease, unspecified; R01.1 Cardiac murmur, unspecified; E78.5 Hyperlipidemia, unspecified; F41.9 Anxiety disorder, unspecified; G47.30 Sleep apnea, unspecified; M85.80 Other specified disorders of bone density and structure, unspecified site; G62.9 Polyneuropathy, unspecified; K21.9 Gastro-esophageal reflux disease without esophagitis; Z79.01 Long term (current) use of anticoagulants; Z99.89 Dependence on other enabling machines and devices; Z85.038 Personal history of other malignant neoplasm of large intestine; Z90.49 Acquired absence of other specified parts of digestive tract; Z79.899 Other long term (current) drug therapy
CPT/HCPCS: 36415; 80053; 81001; 82550; 82803; 83880; 84439; 84443; 84484; 85008; 85025; 93005; 93010; 94640; 97802

== ENCOUNTER 2017-10-03 10:52 | Outpatient (CLI) | payer OTHER ==
--- NOTE | 2017-10-03 13:17 | DI ---
EXAM: Chest two views HISTORY: Restrictive lung disease COMPARISON: 05/24/1927 pain TECHNIQUE: Two views of the chest were performed FINDINGS: The lungs are clear. There is no pleural effusion or pneumothorax. The heart is normal i n size. The mediastinal contour is normal, noting atherosclerosis. There are no acute abnormalities of the bones. Large hiatal hernia. IMPRESSION: 1. No acute cardiopulmonary process. 2. Large hiatal hernia.
== END 2017-10-03 10:53 | disposition home or self-care (01) ==
LOC: RAD 10:52
PROVIDERS: ATTEND Nurse Practitioner Family
DX: J98.8 Other specified respiratory disorders (principal)

== ENCOUNTER 2017-10-31 15:16 | Inpatient (IN) | payer OTHER ==
--- NOTE | 2017-10-31 16:27 | CT ---
EXAM: CT head without contrast. HISTORY: Slurred speech. Shaking. COMPARISON: 03/26/2012. TECHNIQUE: Multiple axial images of the brain were obtained from the skull base through the vertex w ithout intravenous contrast. Multiplanar reformats were provided. FINDINGS: There is no intracranial hemorrhage or extraaxial collection. The foreman-white differentiat ion is maintained without evidence for acute large vascular territory infarction. There are areas of periventricular and subcortical white matter low attenuation. The cortical sulci and cerebral ventr icles are symmetrically enlarged. The basal cisterns are well visualized. There is no hydrocephalus , mass effect, or midline shift. The paranasal sinuses and left mastoid air cells are clear. Right mastoid air cells are hypoplastic and may be opacified . The calvarium is intact. IMPRESSION: 1. No acute intracranial abnormality. 2. Chronic small vessel ischemic changes and atrophy.
--- NOTE | 2017-10-31 16:54 | ED.PDOC ---
General ED Provider: Dr. EITAN CHERY Chief Complaint: Weakness Stated Complaint: weakness, right ear pain Time Seen by Physician: 15:19 (pt has no neuro deficits on arrival) Mode of Arrival: Wheelchair Information Source: Patient, Family Exam Limitations: No limitations Primary Care Provider: GUMARO ORTIZ Nursing and Triage Documentation Reviewed and Agree: Yes Reviewed sepsis parameters & appropriate labs ordered?: Yes System Inflammatory Response Syndrome: Not Applicable Sepsis Protocol: For patient's 13 years and over: Temp is 96.8 and below OR 101 and greater Pulse >90 BPM Resp >20/minute Acutely Altered Mental Status Are patient's symptoms suggestive of a new infection, such as: -Pneumonia -Skin, Soft Tissue -Endocarditis -UTI -Bone, Joint Infection -Implantable Device -Acute Abdominal Infection -Wound Infection -Meningitis -Blood Stream Catheter Infection -Unknown Neurological Complaint Exam - Weakness Complaint/Exam Last Known Well: 2 days ago also c/o a dull right pain off/on Onset: Gradual Duration: 2 days Symptoms Are: Still present Timing: Intermittent Episodes Lasting: Days Initial Severity: Moderate Current Severity: Mild Character: Reports: Lightheaded, Weak. Denies: Head spinning, Room spinning, Dizzy Aggravating: Reports: Exertion. Denies: Headache, Position change, Supine to erect, Change in head position Alleviating: Reports: None Associated Signs and Symptoms: Denies: Nausea, Vomiting, Diaphoresis, Tinnitus, Chest pain, Short of air, Palpitations, Unsteady gait, GI blood loss, Visual changes, Decreased oral intake, Change in medication, Change in diet, OTC meds, Loss of balance Cardiac Risk Factors: Reports: Hypertension, Elevated lipids CVA Risk Factors: Reports: Diabetes, Hypertension Related Surgical History: Reports: None JVD Present: No Carotid Bruit Present: No Glascow Coma Scale (see protocol): 15 and negative deficits Nystagmus Present: No Gag Reflex Present: Yes Meningeal Signs Positive: No Focal Weakness: Present: None Focal Sensory Loss: Present: None Gait: Unable [id number]: Normal Findings Romberg Test Positive: No (unable to asses ) Babinski Sign: Negative Right, Negative Left Heel to Toe Normal: No (see above) Differential Diagnoses: Dysrhythmia, Hypovolemia, Metabolic abnormalities, Vasovagal reaction Quality Indicators for Cardiac Chest Pain: EKG in 10min. Quality Indicators for AMI: EKG in 10min. Quality Indicator For Non-Traumatic Chest Pain/Syncope: EKG Performed Review of Systems - Review Of Systems Constitutional: Reports: Malaise, Weakness Eyes: Reports: No symptoms Ears, Nose, Mouth, Throat: Reports: Ear pain (right) Respiratory: Reports: No symptoms Cardiac: Reports: No symptoms GI: Reports: No symptoms : Reports: No symptoms Musculoskeletal: Reports: No symptoms Skin: Reports: No symptoms Neurological: Reports: No symptoms Endocrine: Reports: No symptoms Hematologic/Lymphatic: Reports: No symptoms All Other Systems: Reviewed and Negative Past Medical History - Past Medical History Previously Healthy: Yes Endocrine: Reports: Dyslipidemia Cardiovascular: Reports: Hypertension Respiratory: Reports: None Hematological: Reports: None Gastrointestinal: Reports: None Genitourinary: Reports: None Neuro/Psych: Reports: None Musculoskeletal: Reports: None Cancer: Reports: None Last Menstrual Period: menopause - Surgical History General Surgical History: Reports: None - Family History Family History: Reports: None - Social History Smoking Status: Former smoker Hx Substance Use: No Alcohol Screening: None Physical Exam - Physical Exam Appearance: Well-appearing, No pain distress, Well-nourished Eyes: EDE, EOMI, Conjunctiva clear ENT: Ears normal, Nose normal, Oropharynx normal Respiratory: Airway patent, Breath sounds clear, Breath sounds equal, Respirations nonlabored Cardiovascular: RRR, Pulses normal, No rub, No murmur GI/: Soft, Nontender, No masses, Bowel sounds normal, No Organomegaly Musculoskeletal: Normal strength, ROM intact, No edema, No calf tenderness Skin: Warm, Dry, Normal color Neurological: Sensation intact, Motor intact, Reflexes intact, Cranial nerves intact, Alert, Oriented Psychiatric: Affect appropriate, Mood appropriate Interpretation - Radiology Interpretation Radiology Interpretation By: Radiologist Radiology Results: No acute changes - Management Scientist Rate: Normal Rhythm: Sinus - EKG Interpretation Rate: Normal Rhythm: Sinus Re-Evaluation - Re-Evaluation Time of Re-Evaluation: 16:00 Status: Improved Vital Signs Stable: Yes Pain Level: 0 Appearance: NAD Lungs: Clear Skin: Warm and Dry Neuro: Alert and Oriented X3 CV: RRR - Re-Evaluation Time of Re-Evaluation: 16:57 Status: Improved Vital Signs Stable: Yes Pain Level: 0 Appearance: NAD Skin: Warm and Dry Neuro: Alert and Oriented X3 CV: RRR (no neuro deficits GCS 15) Physician Notification - Case Discussed Physician Notified: pmd Time of Notification: 18:00 Admit To: Inpatient Critical Care Note - Critical Care Note Total Time (mins): 0 Course - Course Hematology/Chemistry: 10/31/17 15:43 10/31/17 16:11 Orders, Labs, Meds: Lab Review 10/31/17 10/31/17 15:43 16:11 WBC 8.87 RBC 4.08 L Hgb 12.2 Hct 37.2 MCV 91.2 MCH 29.9 MCHC 32.8 RDW Coeff of Bk 14.6 Plt Count 196 Immature Gran % (Auto) 0.6 Neut % (Auto) 75.1 Lymph % (Auto) 12.6 [place] % (Auto) 9.9 Eos % (Auto) 1.5 Baso % (Auto) 0.3 Immature Gran # (Auto) 0.1 Neut # (Auto) 6.7 Lymph # (Auto) 1.1 [place] # (Auto) 0.9 Eos # (Auto) 0.1 Baso # (Auto) 0.0 Sodium 136 Potassium 4.2 Chloride 98 Carbon Dioxide 29 Anion Gap 13.2 BUN 15 Creatinine 0.78 Estimated GFR (MDRD) 70.00 BUN/Creatinine Ratio 19.23 Glucose 99 Calcium 9.7 Total Bilirubin 0.5 AST 12 L ALT 11 L Alkaline Phosphatase 49 L Total Creatine Kinase 34 Troponin I 0.0110 Total Protein 6.5 Albumin 3.2 L Globulin 3.3 Albumin/Globulin Ratio 0.97 Orders Category Date Time Status ABG DRAW REQUEST Stat CARDIO 10/31/17 15:44 Ordered EKG-(ED ONLY) Stat CARDIO 10/31/17 15:44 Completed NPO REMINDER: IMAGING ONCE CARE 10/31/17 15:44 Completed ABG Stat LAB 10/31/17 15:44 Ordered CBC W/ AUTO DIFF Stat LAB 10/31/17 15:43 Completed COMPREHENSIVE METABOLIC PANEL Stat LAB 10/31/17 16:11 Completed CREATINE KINASE Stat LAB 10/31/17 16:11 Completed TROPONIN I Stat LAB 10/31/17 16:[address] HEAD W/O CONTRAST Stat RADS 10/31/17 15:49 Completed Vital Signs: Temp Pulse Resp BP Pulse Ox 10/31/17 16:51 52 L 18 151/68 H 97 10/31/17 15:17 97.5 F L 56 L 20 144/64 H 94 L Departure - Departure Time of Disposition: 18:00 Disposition: ADMITTED INPATIENT Discharge Problem: Weakness Instructions: Weakness (ED) Condition: Good Pt referred to PMD for follow-up: Yes IPMP verified?: No Additional Instructions: Please call your Family Physician as soon as possible to schedule a follow-up appointment. Allergies/Adverse Reactions: Allergies adhesive Adverse Reaction (Verified 07/13/13 23:09) Penicillins Adverse Reaction (Verified 04/27/13 22:31) sulfamethoxazole [From Bactrim] Adverse Reaction (Verified 04/27/13 22:31) trimethoprim [From Bactrim] Adverse Reaction (Verified 04/27/13 22:31) Home Medications: Ambulatory Orders Acetaminophen [Mapap] 1,000 mg PO DAILY 04/27/13 Albuterol Sulfate 0.083% Neb [Albuterol 0.083% Neb] 1 vial INH QID PRN 04/27/13 Albuterol Sulfate [Proair Hfa] 2 puff INH QID PRN 04/27/13 Ascorbic Acid [Vitamin C] 1,000 mg PO DAILY 04/27/13 Budesonide/Formoterol Fumarate [Symbicort 160-4.5 Mcg Inhaler] 2 puff INH BID Calcium Carbonate/Vitamin D3 [Calcium 600 + Vit D Tablet] 1 tab PO BID 04/27/13 Calcium Polycarbophil [Fibertab] 625 mg PO DAILY 04/27/13 Cetirizine HCl 10 mg PO DAILY 04/27/13 Gabapentin 600 mg PO BID 04/27/13 Glucosamine/D3/Boswellia Becca [Glucosamine Complex Tablet] 1,500 mg PO BEDTIME 04/27/13 Levothyroxine Sodium [Tirosint] 125 mcg PO DAILY 04/27/13 Omeprazole [Prilosec] 40 mg PO DAILY 04/27/13 Tiotropium [place] [Spiriva] 18 mcg INH DAILY 04/27/13 Vitamin B Complex 1 tab PO BEDTIME 04/27/13 Acetaminophen/Diphenhydramine [Acetaminophen-Diphenhyd 500-25] 1 tab PO BEDTIME 05/24/17 Diltiazem HCl [Diltiazem 24Hr Cd] 1 tab PO DAILY 05/24/17 Rivaroxaban [Xarelto] 1 tab PO DAILY 05/24/17 Tramadol HCl 1 tab PO BID PRN 05/24/17 Bisoprolol Fumarate 10 mg PO DAILY #30 tablet 05/28/17 Furosemide [Lasix] 20 mg PO DAILY #30 tablet 05/28/17 Potassium Chloride [K-Tab ER] 10 meq PO DAILY #30 tablet.er 05/28/17 Disposition Discussed With: Patient, Family
[2017-10-31] MEDS ORDERED: PROAIR HFA IH PRN (16:58)
[2017-10-31] MEDS ORDERED: ALBUTEROL 0.083% NEB NEB PRN (16:58)
[2017-10-31] MEDS ORDERED: SOLU-MEDROL 125 MG IVP STA (18:38)
[2017-10-31] MEDS ORDERED: TORADOL IVP PRN (19:34)
[2017-10-31] MEDS ORDERED: XANAX PO PRN (19:35)
[2017-10-31] MEDS ORDERED: NON-FORMULARY MEDICATION (Gabapentin [Gabapentin] 600 MG) PO SCH (21:00)
[2017-10-31] MEDS ORDERED: NEURONTIN ONE (21:22)
[2017-10-31] MEDS: SYMBICORT 160-4.5 MCG INHALER IH SCH (21:25)
[2017-10-31 21:26] VITALS: BMI 38.6
[2017-10-31] MEDS: BALANCED B-100 PO SCH (21:34)
[2017-10-31] MEDS: SODIUM CHLORIDE 1,000 ML IV SCH (22:59)
[2017-11-01] MEDS ORDERED: DECADRON 4 MG/ML SDV IM STA (08:28)
[2017-11-01] MEDS ORDERED: RIVAROXABAN PO SCH (09:00)
[2017-11-01] MEDS ORDERED: ACETAMINOPHEN 1000 MG PO SCH (09:00)
[2017-11-01] MEDS ORDERED: NON-FORMULARY MEDICATION (Potassium Chloride [K-Tab Er] 10 MEQ) PO SCH (09:00)
[2017-11-01] MEDS ORDERED: LEVOTHYROXINE SODIUM 125 MCG PO SCH (09:00)
[2017-11-01] MEDS ORDERED: BISOPROLOL FUMARATE 10 MG PO SCH (09:00)
[2017-11-01] MEDS ORDERED: NON-FORMULARY MEDICATION (Omeprazole [Prilosec] 40 MG) PO SCH (09:00)
--- NOTE | 2017-11-01 09:06 | PCM.PROG ---
Attending Provider: ATTENDING PROVIDER: Dr. GUMARO ORTIZ This patient is seen with Sandy Barahona, Nurse Practitioner. DATE OF SERVICE: 11/01/17 SUBJECTIVE: This 87 year old WHITE/ F was hospitalized 10/31/17. The patient is sitting in the chair, alert. She is having difficulty speaking due to tremors and shaking of the jaw. She says she is experiencing intermittent sharp right jaw pain that is shooting, tremor right arm. This has been sudden onset. CT brain normal. REVIEW OF SYSTEMS: CONSTITUTIONAL: Weakness. No night sweats. No malaise, lethargy. No fever or chills. HEENT: Eyes: No visual changes. No eye pain. No eye discharge. ENT: No runny nose. No epistaxis. No sinus pain. No odynophagia. No congestion. RESPIRATORY: No cough, no congestion. No hemoptysis. No shortness of breath. CARDIOVASCULAR: No angina symptoms. No CHF symptoms. No atypical chest pain for CAD. No palpitations. No orthopnea.. GASTROINTESTINAL: No abdominal pain. No nausea or vomiting. No diarrhea or constipation. No hematemesis. No hematochezia. GENITOURINARY: No urgency. No frequency. No dysuria. No hematuria. No obstructive symptoms. No discharge. No pain. No significant abnormal bleeding. MUSCULOSKELETAL: No musculoskeletal pain; no joint swelling. NEUROLOGICAL: Positive for shakiness. Awake, alert, oriented to time, place and person. No headache. No neck pain. No syncope. No seizures. No dizziness. PSYCHIATRIC: Not anxious. No depression. No suicidal thoughts. No homicidal thoughts. SKIN: No rash. No lesions. No wounds. ENDOCRINE: No unexplained weight loss. No weight gain. HEMATOLOGIC/LYMPHATIC: No anemia. No purpura. No petechiae. No prolonged or excessive bleeding. No palpable lymph nodes. PHYSICAL EXAMINATION: GENERAL: The patient is awake, alert and oriented, sitting in chair in no distress. VITAL SIGNS: Temperature 97.5 F, Pulse 57, Respiratory Rate 16, BP 134/56, Pulse Ox 96% HEENT: Head normocephalic, atraumatic. Eyes: Extraocular muscles are intact. Pupils are equal, round and reactive to light and accommodation. Ears: No lesions. Nose appeared normal. Throat: No exudate or erythema. NECK: Supple. No JVD, no carotid bruit. No lymphadenopathy or thyromegaly. LUNGS: Diminished breath sounds. Clear to auscultation. Percussion note normal. Chest symmetrical. HEART: S1, S2, no S3. No murmurs. No cyanosis or clubbing. No ascites. Pulses: Dorsalis pedis and posterior tibial pulses +1 to +2 both sides. ABDOMEN: Soft. Non-tender. Bowel sounds active. No CVA tenderness. No mass felt. EXTREMITIES: No edema. Full range of motion of all extremities, equal. NEUROLOGIC: Change in speech. Tremors right side. Cranial nerves II through XII are grossly intact. No headache, no double vision or headache. SKIN: Not dry. Intact. Turgor-normal. LYMPHATIC: No palpable lymph nodes/no lymphedema. MUSCULOSKELETAL: Normal joints with no swelling. Muscle tone is normal. LAB REVIEW: 11/01/17 04:30 11/01/17 04:30 11/01/17 04:30: TSH 0.166 L 11/01/17 04:30: Sodium 136, Potassium 4.2, Chloride 101, Carbon Dioxide 27, Anion Gap 12.2, BUN 14, Creatinine 0.76, Estimated GFR (MDRD) 72.00, BUN/ Creatinine Ratio 18.42, Glucose 169 H D, Calcium 9.4, Total Bilirubin 0.4, AST 11 L, ALT 11 L, Alkaline Phosphatase 52 L, Total Protein 6.6, Albumin 3.1 L, Globulin 3.5, Albumin/Globulin Ratio 0.89 11/01/17 04:30: WBC 8.85, RBC 4.17 L, Hgb 12.5, Hct 37.3, MCV 89.4, MCH 30.0, MCHC 33.5, RDW Coeff of Bk 14.2, Plt Count 193, Immature Gran % (Auto) 1.0, Neut % (Auto) 92.1, Lymph % (Auto) 5.8 L, [place] % (Auto) 0.9, Eos % (Auto) 0.0, Baso % (Auto) 0.2, Immature Gran # (Auto) 0.1, Neut # (Auto) 8.2 H, Lymph # ( Auto) 0.5 L, [place] # (Auto) 0.1 L, Eos # (Auto) 0.0, Baso # (Auto) 0.0 10/31/17 23:04: Total Creatine Kinase 36, Troponin I 0.0180 10/31/17 16:11: ESR 34 H 10/31/17 16:11: Sodium 136, Potassium 4.2, Chloride 98, Carbon Dioxide 29, Anion Gap 13.2, BUN 15, Creatinine 0.78, Estimated GFR (MDRD) 70.00, BUN/ Creatinine Ratio 19.23, Glucose 99, Calcium 9.7, Total Bilirubin 0.5, AST 12 L, ALT 11 L, Alkaline Phosphatase 49 L, Total Creatine Kinase 34, Troponin I 0.0110 , Total Protein 6.5, Albumin 3.2 L, Globulin 3.3, Albumin/Globulin Ratio 0.97 10/31/17 15:43: WBC 8.87, RBC 4.08 L, Hgb 12.2, Hct 37.2, MCV 91.2, MCH 29.9, MCHC 32.8, RDW Coeff of Bk 14.6, Plt Count 196, Immature Gran % (Auto) 0.6, Neut % (Auto) 75.1, Lymph % (Auto) 12.6, [place] % (Auto) 9.9, Eos % (Auto) 1.5, Baso % (Auto) 0.3, Immature Gran # (Auto) 0.1, Neut # (Auto) 6.7, Lymph # (Auto ) 1.1, [place] # (Auto) 0.9, Eos # (Auto) 0.1, Baso # (Auto) 0.0 ASSESSMENT: 1. RIGHT JAW PAIN 2. TREMORS ON RIGHT SIDE 3. GENERALIZED WEAKNESS 4. COPD, OXYGEN DEPENDENT PLAN: 1. Decrease IV fluids to 42 cc/hr 2. 1 cc Decadron 3. Chest x-ray 4. MRI of brain without 5. Check to see if carotid US has been done 6. UA Plan and coordination of the patient's care discussed in the presence of [employer] Rep and nurse. CONDITION: Stable SCRIBED BY: [employer] Crewmember scribed while in presence of service performed by Dr. Ortiz/Sandy Barahona APRN on 11/01/17 (0108)
[2017-11-01] MEDS: ZEBETA PO SCH (09:07)
[2017-11-01] MEDS: TYLENOL PO SCH (09:07)
[2017-11-01] MEDS: SYNTHROID PO SCH ×2 (09:07→09:08)
[2017-11-01] MEDS: NEURONTIN PO SCH ×2 (09:07→20:12)
[2017-11-01] MEDS: MICRO-K CAP PO SCH (09:08)
[2017-11-01] MEDS: LASIX TAB PO SCH (09:08)
[2017-11-01] MEDS: PRILOSEC PO SCH (09:08)
[2017-11-01] MEDS: CARDIZEM CD PO SCH (09:08)
[2017-11-01] MEDS: CALCIUM POLYCARBOPHIL 625 MG PO SCH (09:09)
[2017-11-01] MEDS: SODIUM CHLORIDE 1,000 ML IV SCH ×3 (09:09→17:03)
[2017-11-01] MEDS: SPIRIVA IH SCH (09:12)
[2017-11-01] MEDS: SYMBICORT 160-4.5 MCG INHALER IH SCH ×2 (09:12→20:12)
--- NOTE | 2017-11-01 10:38 | DI ---
EXAM: Two views of the chest. History: Short of breath Comparison: Chest radiograph 10/03/2017 Findings: Heart size is stable and probably mildly enlarged. No definite acute infiltrates. No kd reciable pleural fluid and no pneumothorax. Atherosclerotic vascular calcifications. No acute osseo us abnormalities. Hiatal hernia again noted. Impression: 1. No definite acute infiltrates. 2. Mild cardiomegaly. 3. Hiatal hernia again noted.
--- NOTE | 2017-11-01 11:26 | US ---
EXAM: Bilateral carotid artery Doppler History: Weakness. Technique: Multiple sonographic images through the bilateral internal carotid arteries were obtained . Color duplex Doppler was used to interrogate vascular flow. Findings: The right ICA peak systolic velocity is within normal limits measuring 60 cm/sec. The right ICA/cca PSV ratio is normal at 1.1. The right vertebral artery is patent and demonstrates antegrade flow. G ray scale images demonstrate mild plaque buildup within the right internal carotid artery. The left ICA peak systolic velocity is within normal limits measuring 80 cm/sec. The left ICA/cca PS V ratio is normal at 1.4. The left vertebral artery is patent and demonstrates antegrade flow. James scale images demonstrate mild plaque buildup within the left internal carotid artery. Impression: No significant hemodynamic stenosis of the bilateral internal carotid arteries.
--- NOTE | 2017-11-01 11:53 | MRI ---
EXAM: MRI brain without and with IV contrast. DATE: 11/01/2017. HISTORY: Slurred speech, tremors. TECHNIQUE: Sagittal T1W pre and postcontrast, axial T2W, axial FLAIR, axial T1W pre and postcontrast , axial DWI, coronal T1W postcontrast, and coronal T2W GRE sequences of the brain were obtained using 1.5 Dayanara magnet. CONTRAST: Omniscan - 20 ml IV. COMPARISON: CT head 10/31/2017. MRI brain 03/26/2012. FINDINGS: The lateral ventricles, temporal tips, third ventricle, Sylvian fissures, and many cerebra l sulci at the superior vertex of the frontal / parietal lobes are mildly prominent due to involution al change. No midline shift, mass effect or abnormal extra-axial fluid collection is apparent. No a cute infarct, hemorrhage or intra-axial neoplasm is identified. 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 No abnormal contrast enhancement is identified in the brain, meninges or dura. Narrow, confluent rim o f T2W/FLAIR hyperintensity is observed in the white matter abutting each lateral ventricle, which is slightly broader areas is seen and a mildly near the atrium bilaterally. Small number of 2-10 mm, T2 W/FLAIR bright foci are scattered in the schmidt radiata, centrum semiovale and subcortical white annia er bilaterally. The foreman - white matter differentiation is normal. No migration or diverticulation a bnormality is identified. The amygdala, hippocampus, and parahippocampal gyri are similar bilaterall y. The 7th/8th cranial nerve complexes, cerebellopontine angles, brainstem, and visible cervical spi nal cord are normal. There is no cerebellar tonsillar ectopia. The pituitary gland is normal in siz e and signal. Corpus callosum is normal in size and configuration. Flow voids are present in the ma vonnie intracranial arteries and in the dural venous sinuses. No aneurysm, AVM or dural venous sinus th rombosis is apparent. Appearance of the lens of each eye suggests prior cataract surgery. No other orbit abnormality is identified. Multiple mastoid air cells bilaterally demonstrate T2W bright, T1W intermediate signal and questionable minor enhancement. There is no acute sinusitis. No neck mass o r lymphadenopathy is detected. Moderate thickening of the inner table of the frontal bone appears be nign. No calvarial neoplasm or acute fracture is evident. Arthritic changes at C1-2, soft tissue de nsity posterior to the odontoid do not cause central canal stenosis. IMPRESSIONS: 1. No acute infarct, hemorrhage, enhancing neoplasm or hydrocephalus. 2. Mild cerebral small vessel disease. 3. Mild cerebral involutional change. 4. 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 5. Benign hyperostosis frontalis interna. 6. Persistent bilateral mastoiditis vs effusions. 7. 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
--- NOTE | 2017-11-01 14:53 | PN ---
DATE OF SERVICE: 11/01/17 SUBJECTIVE: The patient was seen and examined with Nurse Practitioner. The daughter was in the room. The patient has hyperactivity of her extremities and her facial movement. No focal neurological deficit. PHYSICAL EXAMINATION: HEENT: Head normocephalic, atraumatic. Eyes: Extraocular muscles are intact. Pupils are equal, round and reactive to light and accommodation. Ears: No lesions. Nose appeared normal. Throat: No exudate or erythema. NECK: Supple. No JVD, no carotid bruit. No lymphadenopathy or thyromegaly. LUNGS: Clear to auscultation. Percussion note normal. Chest symmetrical. HEART: S1, S2, no S3. No murmurs. No cyanosis or clubbing. No ascites. Pulses: Dorsalis pedis and posterior tibial pulses +1 to +2 both sides. No evidence of CHF or coronary insufficiency. ABDOMEN: Soft. Nontender. Bowel sounds active. No CVA tenderness. No mass felt. EXTREMITIES: No edema. Full range of motion of all extremities, equal. NEUROLOGIC: No focal deficit. Cranial nerves II through XII are grossly intact. No headache, no double vision or headache. SKIN: Not dry. Intact. Turgor - normal. LYMPHATIC: No palpable lymph nodes/no lymphedema. MUSCULOSKELETAL: Normal joints with no swelling. Muscle tone is normal. LABS: CT scan of the head was negative. CONDITION: Stable PLAN: 1. Will under go MRI of the head 2. Carotid scan today TIME SPENT: More than 30 minutes. Plan and coordination of the patient's care discussed in the presence of nurse. RUDY
[2017-11-01] MEDS: XARELTO PO SCH (17:17)
[2017-11-01] MEDS: BALANCED B-100 PO SCH (20:13)
[2017-11-02] MEDS: SYNTHROID PO SCH ×2 (05:53→05:54)
[2017-11-02] MEDS: LASIX TAB PO SCH (05:53)
[2017-11-02] MEDS: PRILOSEC PO SCH (05:54)
[2017-11-02] MEDS ORDERED: DECADRON 4 MG/ML SDV IM STA (08:02)
[2017-11-02] MEDS: NEURONTIN PO SCH ×2 (08:28→21:13)
[2017-11-02] MEDS: CARDIZEM CD PO SCH (08:28)
[2017-11-02] MEDS: MICRO-K CAP PO SCH (08:28)
[2017-11-02] MEDS: ZEBETA PO SCH (08:28)
[2017-11-02] MEDS: TYLENOL PO SCH (08:29)
[2017-11-02] MEDS: SPIRIVA IH SCH (08:29)
[2017-11-02] MEDS: SYMBICORT 160-4.5 MCG INHALER IH SCH ×2 (08:29→21:14)
--- NOTE | 2017-11-02 08:38 | PCM.PROG ---
Attending Provider: ATTENDING PROVIDER: Dr. GUMARO ORTIZ This patient is seen with Sandy Barahona, Nurse Practitioner. DATE OF SERVICE: 11/02/17 SUBJECTIVE: This 87 year old WHITE/ F was hospitalized 10/31/17. The patient is sitting in bed, alert. Speech is somewhat improved today. She is still slightly stuttering but improved from yesterday. MRI and carotids are normal. She is still weak. She has been eating well. REVIEW OF SYSTEMS: CONSTITUTIONAL: Weakness. No night sweats. No malaise, lethargy. No fever or chills. HEENT: Eyes: No visual changes. No eye pain. No eye discharge. ENT: No runny nose. No epistaxis. No sinus pain. No odynophagia. No congestion. RESPIRATORY: No cough, no congestion. No hemoptysis. No shortness of breath. CARDIOVASCULAR: No angina symptoms. No CHF symptoms. No atypical chest pain for CAD. No palpitations. No orthopnea.. GASTROINTESTINAL: No abdominal pain. No nausea or vomiting. No diarrhea or constipation. No hematemesis. No hematochezia. GENITOURINARY: No urgency. No frequency. No dysuria. No hematuria. No obstructive symptoms. No discharge. No pain. No significant abnormal bleeding. MUSCULOSKELETAL: No musculoskeletal pain; no joint swelling. NEUROLOGICAL: Awake, alert, oriented to time, place and person. No headache. No neck pain. No syncope. No seizures. No dizziness. PSYCHIATRIC: Not anxious. No depression. No suicidal thoughts. No homicidal thoughts. SKIN: No rash. No lesions. No wounds. ENDOCRINE: No unexplained weight loss. No weight gain. HEMATOLOGIC/LYMPHATIC: No anemia. No purpura. No petechiae. No prolonged or excessive bleeding. No palpable lymph nodes. PHYSICAL EXAMINATION: GENERAL: The patient is awake, alert and oriented, sitting in bed in no distress. VITAL SIGNS: Temperature 97.7 F, Pulse 53, Respiratory Rate 18, BP 122/48, Pulse Ox 96% HEENT: Head normocephalic, atraumatic. Eyes: Extraocular muscles are intact. Pupils are equal, round and reactive to light and accommodation. Ears: No lesions. Nose appeared normal. Throat: No exudate or erythema. NECK: Supple. No JVD, no carotid bruit. No lymphadenopathy or thyromegaly. LUNGS: Clear to auscultation. Percussion note normal. Chest symmetrical. HEART: S1, S2, no S3. No murmurs. No cyanosis or clubbing. No ascites. Pulses: Dorsalis pedis and posterior tibial pulses +1 to +2 both sides. ABDOMEN: Soft. Non-tender. Bowel sounds active. No CVA tenderness. No mass felt. EXTREMITIES: No edema. Full range of motion of all extremities, equal. NEUROLOGIC: No focal deficit. Cranial nerves II through XII are grossly intact. No headache, no double vision or headache. SKIN: Not dry. Intact. Turgor-normal. LYMPHATIC: No palpable lymph nodes/no lymphedema. MUSCULOSKELETAL: Normal joints with no swelling. Muscle tone is normal. LAB REVIEW: 11/02/17 04:30 11/02/17 04:30 11/02/17 04:30: Sodium 137, Potassium 3.9, Chloride 103, Carbon Dioxide 26, Anion Gap 11.9, BUN 15, Creatinine 0.72, Estimated GFR (MDRD) 76.00, BUN/ Creatinine Ratio 20.83, Glucose 144 H, Calcium 9.4, Total Bilirubin 0.3, AST 14 L, ALT 11 L, Alkaline Phosphatase 46 L, Total Protein 6.1, Albumin 3.0 L, Globulin 3.1, Albumin/Globulin Ratio 0.97 11/02/17 04:30: WBC 14.91 H D, RBC 3.97 L, Hgb 11.7 L, Hct 35.7 L, MCV 89.9, MCH 29.5, MCHC 32.8, RDW Coeff of Bk 14.4, Plt Count 206, Immature Gran % (Auto ) 0.8, Neut % (Auto) 87.0, Lymph % (Auto) 5.2 L, [place] % (Auto) 6.9, Eos % (Auto ) 0.0, Baso % (Auto) 0.1, Immature Gran # (Auto) 0.1, Neut # (Auto) 13.0 H, Lymph # (Auto) 0.8, [place] # (Auto) 1.0, Eos # (Auto) 0.0, Baso # (Auto) 0.0 11/01/17 19:00: Urine Color Yellow, Urine Clarity Clear, Urine pH 5.5, Ur Specific Norris 1.025, Urine Protein Negative, Urine Glucose (UA) Negative, Urine Ketones Negative, Urine Blood Negative, Urine Nitrite Negative, Urine Bilirubin Negative, Urine Urobilinogen 0.2, Ur Leukocyte Esterase Negative 11/01/17 07:20: Total Creatine Kinase 311, CK-MB (CK-2) 2.8, CK-MB (CK-2) % 0.29596, Troponin I 0.0110 ASSESSMENT: 1. Generalized weakness. 2. Change in speech; however, improved. 3. COPD, oxygen dependent. 4. Atrial fibrillation. 5. Cardiomegaly. PLAN: 1. 1 cc Decadron 2. Decrease Synthroid to 100 mcg 3. Echocardiogram if not done in the past year 4. D/C IV fluids 5. PT/OT evaluation Plan and coordination of the patient's care discussed in the presence of Artificial Pearl Maker and nurse. CONDITION: Stable SCRIBED BY: FANG ONAEL Scheduling Assistant scribed while in presence of service performed by Dr. Ortiz/Sandy Barahona APRN on 11/02/17 ([id number])
[2017-11-02] MEDS: CALCIUM POLYCARBOPHIL 625 MG PO SCH (08:47)
[2017-11-02] MEDS ORDERED: INDERAL PO SCH (09:00)
--- NOTE | 2017-11-02 10:10 | RS.OTINEVL ---
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 Surgical History: Knee Replacement, Hip Replacement Surgical History Comments:: B TKA, R LUL, Right ankle fracture, - Level of function Abilities prior to this admission: Pt living at home alone. Pt uses a SW and a RW at home. Pt uses the SW at home. Pt Current Level of Function: Independent Current Equipment Used at Home: walker, wheelchair, bath seat, oxygen. Pain Assessment - Pain Pain Score: 0 Interventions - Objective Patient Orientation: Person, Place, Time, Situation Current Interventions: IV's, Oxygen, Telemetry Observation: Pt is independent with getting in and out of the chair. Pt was moving to quickly with her walker and was educated regarding keeping all legs on the ground instead of walking on the back to legs. Interventions - ROM Right Upper Extremity AROM: WFL's Left Upper Extremity AROM: WFL's - Strength Right Upper Extremity Strength: Normal Left Upper Extremity Strength: Normal - Sensation Right Upper Extremity Sensation: Intact/Normal Left Upper Extremity Sensation: Intact/Normal Balance - Sitting Balance Static Sitting Balance: Good Dynamic Sitting Balance: Good - Standing Balance Static Standing Balance: Fair Dynamic Standing Balance: Fair ADL Skills - Self Feeding Self Feeding: Independent - Grooming Grooming: Independent - Bathing Bathing UE: Not Tested Bathing LE: Not Tested - Dressing Dressing UE: Independent Dressing LE: Independent - Toilet Management Toileting Management: Independent Functional Mobility - Bed Mobility Rolling R/L: Independent Scooting: Independent Supine to Sit: Independent Sit to Supine: Independent - Transfers Sit to Stand: Independent Stand to Sit: Independent Stand Pivot Transfers: Independent - Ambulation Weight Bearing Status: FWB Assistive Device Used: Standard Walker Assistance needed with Ambulation: Independent - Safety Awareness Safety Awareness: Good [place] INDEX SCORE: . Additional Treatment Performed - Time with patient Total treatment time: 19 Activities Do you have difficulty with your vision?: Yes Patient Interests:: Watching Television Comments:: Reading a magazine Patient Education Patient Education: Education of diagnosis, Education of Plan of Care Teaching Recipient: Patient Teaching Methods: Demonstration Assessment Problem List:: Decreased level of function, Decreased safety/Risk of falls, Weakness Rehab Potential: Good Further Therapy Indicated?: Yes Candidate for Swing Bed for Therapy Services?: no Evaluation Complexity: HISTORY: Low, EXAM OF BODY SYSTEMS: Low, CLINICAL DECISION MAKING: Low Short Term Goals - Goals GOAL 1: No goals at this time. Safety Technician Goals GOAL 1: No OT goals at this time. Plan Plan of Care: Neuromuscular Re-Educ Anticipated Discharge Destination: Home Treatment Diagnosis (ICD 10 Codes): M62.81 Has the Physician been added for Co-signature?: Yes
--- NOTE | 2017-11-02 12:02 | RS.PTINEVL ---
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 Neuropathy of bilateral LE's. Surgical History: Knee Replacement, Hip Replacement Surgical History Comments:: B TKA, R LUL, Right ankle fracture, Subjective Information/ Patient Comments:: Patient denies dizziness. States she walks with a standard walker most of the time at home. She also has a wheeled walker at home. - Level of function Prior to this admission, the patient could do the following:: Independent Selfcare, Independent ADL's, Independent Ambulation Current Equipment Used at Home: walker, wheelchair, bath seat, oxygen. Interventions - Objective Patient Orientation: Person, Place, Time, Situation Current Interventions: Oxygen (2 L oxygen via NC) Range of Motion - ROM Right Lower Extremity AROM: WFL's Left Lower Extremity AROM: WFL's Muscle Strength - Muscle Strength Comments:: LE muscle strength at least 4 to 4+/5. Sensation - Sensation Comments: Reports sensation intact to light touch. Balance - Sitting Balance and Reactions Static Sitting Balance: Good Dynamic Sitting Balance: Good - Standing Balance and Reactions Static Standing Balance: Good Dynamic Standing Balance: Good Functional Mobility - Bed Mobility Scooting: Independent Supine to Sit: Independent Sit to Supine: Independent - Transfers Sit to Stand: Supervision Stand to Sit: Supervision Stand Pivot Transfers: Supervision - Safety Awareness Safety Awareness: Fair [place] INDEX SCORE: NA Ambulation - Ambulation Weight Bearing Status: FWB Assistive Device Used: Rolling Walker Distance: 100 feet Assistance needed with Ambulation: Supervision Quality of Ambulation: Patient demonstrates no loss of balance. She ambulates well wiith the rolling walker. Treatment time - Time with patient Total treatment time: 16 (mins) Patient Education - Education Patient Education: Home Safety Teaching Recipient: Patient, Family Teaching Methods: Discussion Comments: Recommended patient use rolling walker at home for safety and energy conservation. Assessment - Assessment Further Therapy Indicated?: No Candidate for Swing Bed for Therapy Services?: NO, patient shows no skilled need for therapy Evaluation Complexity: HISTORY: Medium (multiple jt surgery, COPD, HTN), EXAM OF BODY SYSTEMS: Low, CLINICAL PRESENTATION: Low, CLINICAL DECISION MAKING: Low Plan Frequency of Treatment: One time treatment Duration of Treatment: One Time Treatment Anticipated Discharge Destination: Home Treatment Diagnosis (ICD 10 Codes): M62.81 general weakness Has the Physician been added for Co-signature?: Yes
[2017-11-02] MEDS: XARELTO PO SCH (16:56)
[2017-11-02] MEDS: INDERAL PO SCH (21:15)
[2017-11-02] MEDS: BALANCED B-100 PO SCH (21:15)
[2017-11-03] MEDS: LASIX TAB PO SCH (05:31)
[2017-11-03] MEDS: SYNTHROID PO SCH (05:31)
[2017-11-03] MEDS: PRILOSEC PO SCH (05:32)
[2017-11-03] MEDS: SPIRIVA IH SCH (08:40)
[2017-11-03] MEDS: SYMBICORT 160-4.5 MCG INHALER IH SCH ×2 (08:40→20:07)
[2017-11-03] MEDS: TYLENOL PO SCH (08:41)
[2017-11-03] MEDS: INDERAL PO SCH ×2 (08:42→20:07)
[2017-11-03] MEDS: NEURONTIN PO SCH ×2 (08:42→20:07)
[2017-11-03] MEDS: MICRO-K CAP PO SCH (08:42)
[2017-11-03] MEDS: ZEBETA PO SCH (08:43)
[2017-11-03] MEDS: CALCIUM POLYCARBOPHIL 625 MG PO SCH (08:44)
[2017-11-03] MEDS: XARELTO PO SCH (16:46)
[2017-11-03] MEDS: BALANCED B-100 PO SCH (20:07)
[2017-11-04] MEDS: LASIX TAB PO SCH (05:38)
[2017-11-04] MEDS: SYNTHROID PO SCH (05:38)
[2017-11-04] MEDS: PRILOSEC PO SCH (05:39)
[2017-11-04] MEDS: CALCIUM POLYCARBOPHIL 625 MG PO SCH (08:15)
[2017-11-04] MEDS: SPIRIVA IH SCH (08:16)
[2017-11-04] MEDS: SYMBICORT 160-4.5 MCG INHALER IH SCH ×2 (08:16→20:36)
[2017-11-04] MEDS: ZEBETA PO SCH (08:17)
[2017-11-04] MEDS: MICRO-K CAP PO SCH (08:17)
[2017-11-04] MEDS: NEURONTIN PO SCH ×2 (08:18→20:36)
[2017-11-04] MEDS: TYLENOL PO SCH (08:18)
[2017-11-04] MEDS: INDERAL PO SCH ×2 (08:18→20:36)
[2017-11-04] MEDS: XARELTO PO SCH (17:22)
[2017-11-04] MEDS: BALANCED B-100 PO SCH (20:36)
[2017-11-05] MEDS: LASIX TAB PO SCH (06:04)
[2017-11-05] MEDS: PRILOSEC PO SCH (06:04)
[2017-11-05] MEDS: SYNTHROID PO SCH (06:04)
--- NOTE | 2017-11-05 09:13 | PCM.PROG ---
Attending Provider: ATTENDING PROVIDER: Dr. GUMARO ORTIZ This patient is seen with Sandy Barahona, Nurse Practitioner. DATE OF SERVICE: 11/05/17 SUBJECTIVE: This 87 year old WHITE/ F was hospitalized 10/31/17. The patient is sitting in the bedside chair, alert. Speech is back to normal. Right arm tremors have essentially resolved. She has been getting up on her own and eating well. REVIEW OF SYSTEMS: CONSTITUTIONAL: Positive for weakness. No night sweats. No malaise, lethargy. No fever or chills. HEENT: Eyes: No visual changes. No eye pain. No eye discharge. ENT: No runny nose. No epistaxis. No sinus pain. No odynophagia. No congestion. RESPIRATORY: No cough, no congestion. No hemoptysis. No shortness of breath. CARDIOVASCULAR: No angina symptoms. No CHF symptoms. No atypical chest pain for CAD. No palpitations. No orthopnea.. GASTROINTESTINAL: No abdominal pain. No nausea or vomiting. No diarrhea or constipation. No hematemesis. No hematochezia. GENITOURINARY: No urgency. No frequency. No dysuria. No hematuria. No obstructive symptoms. No discharge. No pain. No significant abnormal bleeding. MUSCULOSKELETAL: No musculoskeletal pain; no joint swelling. NEUROLOGICAL: Awake, alert, oriented to time, place and person. No headache. No neck pain. No syncope. No seizures. No dizziness. PSYCHIATRIC: Not anxious. No depression. No suicidal thoughts. No homicidal thoughts. SKIN: No rash. No lesions. No wounds. ENDOCRINE: No unexplained weight loss. No weight gain. HEMATOLOGIC/LYMPHATIC: No anemia. No purpura. No petechiae. No prolonged or excessive bleeding. No palpable lymph nodes. PHYSICAL EXAMINATION: GENERAL: The patient is awake, alert and oriented, sitting in chair in no distress. VITAL SIGNS: Temperature 97.8 F, Pulse 53, Respiratory Rate 14, BP 141/58, Pulse Ox 98% HEENT: Head normocephalic, atraumatic. Eyes: Extraocular muscles are intact. Pupils are equal, round and reactive to light and accommodation. Ears: No lesions. Nose appeared normal. Throat: No exudate or erythema. NECK: Supple. No JVD, no carotid bruit. No lymphadenopathy or thyromegaly. LUNGS: Diminished breath sounds bilaterally. Clear to auscultation. Percussion note normal. Chest symmetrical. HEART: S1, S2, no S3. No murmurs. No cyanosis or clubbing. No ascites. Pulses: Dorsalis pedis and posterior tibial pulses +1 to +2 both sides. ABDOMEN: Soft. Non-tender. Bowel sounds active. No CVA tenderness. No mass felt. EXTREMITIES: No edema. Full range of motion of all extremities, equal. NEUROLOGIC: No focal deficit. Cranial nerves II through XII are grossly intact. No headache, no double vision or headache. SKIN: Not dry. Intact. Turgor-normal. LYMPHATIC: No palpable lymph nodes/no lymphedema. MUSCULOSKELETAL: Normal joints with no swelling. Muscle tone is normal. LAB REVIEW: 11/05/17 04:50 11/05/17 04:50 11/05/17 04:50: Sodium 137, Potassium 3.8, Chloride 101, Carbon Dioxide 27, Anion Gap 12.8, BUN 19 H, Creatinine 0.79, Estimated GFR (MDRD) 69.00, BUN/ Creatinine Ratio 24.05, Glucose 111, Calcium 9.3, Total Bilirubin 0.4, AST 11 L , ALT 12, Alkaline Phosphatase 48 L, Total Protein 5.9, Albumin 2.9 L, Globulin 3.0, Albumin/Globulin Ratio 0.97 11/05/17 04:50: WBC 9.80, RBC 4.09 L, Hgb 12.2, Hct 37.6, MCV 91.9, MCH 29.8, MCHC 32.4, RDW Coeff of Bk 14.4, Plt Count 216, Immature Gran % (Auto) 1.4, Neut % (Auto) 75.4, Lymph % (Auto) 12.0, [place] % (Auto) 9.1, Eos % (Auto) 1.6, Baso % (Auto) 0.5, Immature Gran # (Auto) 0.1, Neut # (Auto) 7.4 H, Lymph # ( Auto) 1.2, [place] # (Auto) 0.9, Eos # (Auto) 0.2, Baso # (Auto) 0.1 11/04/17 05:30: TSH 0.572 ASSESSMENT: 1. Generalized weakness. 2. Change in speech; however, improved. 3. COPD, oxygen dependent. 4. Atrial fibrillation. 5. Cardiomegaly. PLAN: 1. Anticipate d/c home. 2. Will keep medication changes, Inderal 20 mg b.i.d. and Synthroid 75 mcg daily. 3. Declines PT and OT at home. Plan and coordination of the patient's care discussed in the presence of Manufacturing Storeperson and nurse. CONDITION: Stable SCRIBED BY: FANG ONEAL Wedding Makeup Artist scribed while in presence of service performed by Dr. Ortiz/Sandy Barahona APRN on 11/05/17 ([id number])
--- NOTE | 2017-11-05 10:05 | HP ---
DATE OF SERVICE: 10/31/17 HISTORY OF PRESENT ILLNESS: This is an 87-year-old white female who presented to the emergency room complaining of right ear pain, which is actually more like right cheek, right- sided facial pain. She has had some changes in speech over the past couple of days with tremors and stuttering and tremors in the right arm with generalized weakness. PAST MEDICAL HISTORY: Dyslipidemia Hypertension Obesity COPD, oxygen dependent Allergies Neuropathy Hypothyroidism GERD B12 deficiency Atrial fibrillation on Xarelto Osteoarthritis Hypertension Leg edema Dyslipidemia PAST SURGICAL HISTORY: Hemorrhoidectomy, right 2007 Cataracts, bilateral, 2002 Partial hysterectomy Bilateral knee replacement, 2011 Right hip replacement REVIEW OF SYSTEMS: CONSTITUTIONAL: Positive for generalized fatigue and weakness. No night sweats. No malaise, lethargy. No fever or chills. HEENT: Right-sided facial pain. Eyes: No visual changes. No eye pain. No eye discharge. ENT: No runny nose. No epistaxis. No sinus pain. No sore throat. No odynophagia. No ear pain. No congestion. RESPIRATORY: No cough, no congestion. No hemoptysis. No shortness of breath. CARDIOVASCULAR: No angina symptoms. No CHF symptoms. No atypical chest pain for CAD. No palpitations. No PND. No orthopnea. GASTROINTESTINAL: No abdominal pain. No nausea or vomiting. No diarrhea or constipation. No hematemesis. No hematochezia. GENITOURINARY: No urgency. No frequency. No dysuria. No hematuria. No obstructive symptoms. No discharge. No pain. No significant abnormal bleeding. MUSCULOSKELETAL: No musculoskeletal pain. No joint swelling. No arthritis. NEUROLOGICAL: Changes in speech. No headache. No neck pain. No syncope. No seizures. No dizziness. PSYCHIATRIC: Not anxious. No depression. No suicidal thoughts. No homicidal thoughts. SKIN: No rash. No lesions. No wounds. ENDOCRINE: No unexplained weight loss. No weight gain. HEMATOLOGIC/LYMPHATIC: No anemia. No purpura. No petechiae. No prolonged or excessive bleeding. No palpable lymph nodes. PERSONAL/FAMILY/SOCIAL HISTORY: She is a former smoker. She currently resides at home by herself. She is mostly wheelchair bound and she does have leg weakness. She has two daughters, which live close by. MEDICATIONS: (HOME) Vitamin B Complex one tab p.o. bedtime Fibertab 625 mg p.o. daily Prilosec 40 mg p.o. daily Tirosint 100 mcg p.o. daily Gabapentin 600 mg p.o. b.i.d. Albuterol one vial INH q.i.d. p.r.n. Albuterol two puff INH q.i.d. p.r.n. Glucosamine 1,500 mg p.o. bedtime Spiriva 18 mcg INH daily Cetirizine 10 mg p.o. daily Symbicort two puff INH b.i.d. Ascorbic Acid 1,000 mg p.o. daily Mapap 1000 mg p.o. daily Calcium Carbonate/Vitamin D3 one tab p.o. b.i.d. Xarelto one tab p.o. daily Tramadol 50 mg one tab p.o. b.i.d. p.r.n. Diltiazem 120 mg cap. ER.24h one tab p.o. daily Acetaminophen/Diphenhydramaine one tab p.o. bedtime Bisoprolol/Hydrochlorothiazide one tab p.o. daily ALLERGIES: ADHESIVES, PENICILLINS, SULFAMETHOXAZOLE, TRIMETHOPRIM PHYSICAL EXAMINATION: VITAL SIGNS: Temperature 97.5, heart rate 56, respirations 20, BP 144/64, pulse ox 94% on 2L. HEENT: Head normocephalic, atraumatic. Eyes: Extraocular muscles are intact. Pupils are equal, round and reactive to light and accommodation. Ears: No lesions. Nose appeared normal. Throat: No exudate or erythema. NECK: Supple. No JVD, no carotid bruit. No lymphadenopathy or thyromegaly. LUNGS: Diminished breath sounds bilaterally. Clear to auscultation. Percussion note normal. Chest symmetrical. HEART: Irregular heart rate consistent with atrial fibrillation. S1, S2, no S3. No murmurs. No cyanosis or clubbing. No ascites. Pulses: Dorsalis pedis and posterior tibial pulses +1 to +2 bilaterally. ABDOMEN: Soft. Nontender. Bowel sounds active. No CVA tenderness. No mass felt. EXTREMITIES: No edema. Full range of motion of all extremities, equal. NEUROLOGIC: Positive for some speech changes which do not include slurring but do include stuttering, hesitancy, difficulty getting her words out and tremor of the right arm. No facial droopiness. Denies any changes in vision. No focal deficit. Cranial nerves II through XII are grossly intact. No headache, no double vision or headache. SKIN: Not dry. Intact. Turgor - normal. LYMPHATIC: No palpable lymph nodes/no lymphedema. MUSCULOSKELETAL: Normal joints with no swelling. Muscle tone is normal. White count 8.87, hemoglobin 12.2, hematocrit 37.2, platelets 196. Sodium 136, potassium 4.2, BUN 15, creatinine 0.78, glucose 99, AST 12, ALT 11, total protein 6.5, albumin 3.2. Sed rate 34. CT of the head without shows no acute intracranial abnormality, chronic small vessel changes. ASSESSMENT: 1. RIGHT-SIDED FACIAL/JAW PAIN. 2. CHANGES IN SPEECH. 3. WORSENING GENERALIZED WEAKNESS. 4. COPD, OXYGEN DEPENDENT. 5. ATRIAL FIBRILLATION ON XARELTO. 6. HYPERTENSION. 7. DYSLIPIDEMIA. 8. HYPOTHYROIDISM. 9. GERD. 10. CHRONIC LEG EDEMA. 11. OBESITY. 12. NEUROPATHY. PLAN: 1. Routine telemetry orders. 2. CBC, CMP daily. 3. Bilateral carotid scan. 4. MRI of the brain. 5. Urinalysis. 6. Chest x-ray. 7. 1 cc Decadron. 8. Decrease IV fluids NS to 42 cc/hr. 9. Neuro checks. 10. Low sodium diet. 11. Keep legs elevated. 12. Will follow closely. TIME SPENT: More than 70 minutes. MTDD
[2017-11-05] MEDS: SYMBICORT 160-4.5 MCG INHALER IH SCH (11:00)
[2017-11-05] MEDS: SPIRIVA IH SCH (11:00)
[2017-11-05] MEDS: NEURONTIN PO SCH (11:00)
[2017-11-05] MEDS: INDERAL PO SCH (11:00)
[2017-11-05] MEDS: ZEBETA PO SCH (11:01)
[2017-11-05] MEDS: TYLENOL PO SCH (11:01)
[2017-11-05] MEDS: MICRO-K CAP PO SCH (11:01)
[2017-11-05] MEDS: CALCIUM POLYCARBOPHIL 625 MG PO SCH (11:06)
--- NOTE | 2017-11-05 12:46 | CM.DICTOOL ---
ADMISSION: 10/31/17 17:37 DISCHARGE: 11/05/17 DATE OF SERVICE: 11/05/17 FINAL DIAGNOSIS WEAKNESS, IMPROVED SLURRED SPEECH, IMPROVED HEADACHE CARDIOMEGALY HYPERTENSION HISTORY OF A-FIB (ON XARELTO) CHF DYSLIPIDEMIA COPD, OXYGEN DEPENDENT GERD LARGE HIATAL HERNIA (CXR 11/03/17) NEUROPATHY OSTEOARTHRITIS SLEEP APNEA (C-PAP) COLORECTAL CANCER S/P HEMICOLECTOMY, RIGHT; 2006 ANXIETY FORMER SMOKER LAST VITALS Temp Pulse Resp BP Pulse Ox 97.8 F 53 L 14 141/58 H 98 11/05/17 05:53 11/05/17 05:53 11/05/17 05:53 11/05/17 05:53 11/05/17 05:53 TAKE THESE MEDICATIONS AT HOME Acetaminophen (Tylenol) 1,000 mg PO DAILY [facility] Last Admin: 11/04/17 08:18 Dose: 1,000 mg Acetaminophen/Diphenhydramine 500-25 1 TAB PO BEDTIME Albuterol Sulfate (Proair Hfa) 2 puff IH QID PRN PRN Reason: Bronchospasm Albuterol Sulfate (Albuterol 0.083% Neb) 1 vial NEB QID PRN PRN Reason: Bronchospasm Ascorbic Acid (Vitamin C) 1,000 mg PO DAILY Bisoprolol Fumarate (Zebeta) 10 mg PO DAILY [facility] Last Admin: 11/04/17 08:17 Dose: 10 mg Budesonide/Formoterol Fumarate (Symbicort 160-4.5 Mcg Inhaler) 2 puff IH BID [facility] Last Admin: 11/04/17 20:36 Dose: 2 puff Calcium Carbonate/Vitamin D3 1 tab PO BID Calcium Polycarbophil [Fibertab] 625 mg PO DAILY [facility] Last Admin: 11/04/17 08:15 Dose: Not Given Certirizine HCL 10 mg PO DAILY Furosemide (Lasix Tab) 20 mg PO QDAC [facility] Last Admin: 11/05/17 06:04 Dose: 20 mg Gabapentin (Neurontin) 600 mg PO BID [facility] Last Admin: 11/04/17 20:36 Dose: 600 mg Glucosamine Complex Tab 1,500 mg PO BEDTIME Levothyroxine Sodium (Synthroid) 75 mcg PO QDAC [facility] Last Admin: 11/05/17 06:04 Dose: 75 mcg Omeprazole (Prilosec) 40 mg PO QDAC [facility] Last Admin: 11/05/17 06:04 Dose: 40 mg Potassium Chloride (Micro-K Cap) 10 meq PO DAILY [facility] Last Admin: 11/04/17 08:17 Dose: 10 meq Propranolol HCl (Inderal) 20 mg PO BID [facility] Last Admin: 11/04/17 20:36 Dose: 20 mg Rivaroxaban (Xarelto) 15 mg PO QPM [facility] Last Admin: 11/04/17 17:22 Dose: 15 mg Tiotropium [place] (Spiriva) 1 cap IH DAILY [facility] Last Admin: 11/04/17 08:16 Dose: 1 cap Tramadol HCL 1 Tab PO BID PRN Vitamin B Complex (Balanced B-100) 1 tab PO BEDTIME [facility] Last Admin: 11/04/17 20:36 Dose: 1 tab ALLERGIES adhesive Adverse Reaction (Verified 07/13/13 23:09) Penicillins Adverse Reaction (Verified 04/27/13 22:31) sulfamethoxazole [From Bactrim] Adverse Reaction (Verified 04/27/13 22:31) trimethoprim [From Bactrim] Adverse Reaction (Verified 04/27/13 22:31) NEW PRESCRIPTIONS: PROPRANOLOL HCL (INDERAL) 20 MG, TAKE ONE TABLET BY MOUTH TWICE DAILY SYNTHROID 75 MCG, TAKE ONE TABLET ON AN EMPTY STOMACH EVERY MORNING DO NOT TAKE YOUR CARDIZEM PLEASE NOTE THE DECREASE IN YOUR SYNTHROID LISTED ABOVE SMOKING: FORMER SMOKER NONE NOW DISEASE SPECIFIC EDUCATION: WEAKNESS S/S TIA AND CVA HOME MEDICATIONS AND CHANGES NEW MEDICATIONS FOLLOW UP LAB REVIEW: 11/05/17 04:50 11/05/17 04:50 11/05/17 04:50: Sodium 137, Potassium 3.8, Chloride 101, Carbon Dioxide 27, Anion Gap 12.8, BUN 19 H, Creatinine 0.79, Estimated GFR (MDRD) 69.00, BUN/ Creatinine Ratio 24.05, Glucose 111, Calcium 9.3, Total Bilirubin 0.4, AST 11 L , ALT 12, Alkaline Phosphatase 48 L, Total Protein 5.9, Albumin 2.9 L, Globulin 3.0, Albumin/Globulin Ratio 0.97 11/05/17 04:50: WBC 9.80, RBC 4.09 L, Hgb 12.2, Hct 37.6, MCV 91.9, MCH 29.8, MCHC 32.4, RDW Coeff of Bk 14.4, Plt Count 216, Immature Gran % (Auto) 1.4, Neut % (Auto) 75.4, Lymph % (Auto) 12.0, Gregory % (Auto) 9.1, Eos % (Auto) 1.6, Baso % (Auto) 0.5, Immature Gran # (Auto) 0.1, Neut # (Auto) 7.4 H, Lymph # ( Auto) 1.2, Gregory # (Auto) 0.9, Eos # (Auto) 0.2, Baso # (Auto) 0.1 11/04/17 05:30: TSH 0.572 PLAN: DISCHARGE HOME TODAY RETURN TO SEE DR. ORTIZ ON 11/12/17 AT 10l:45 A.M. RESUME YOUR HOME MEDICATIONS PER LIST PROVIDED BY THE NURSING STAFF DO NOT TAKE YOUR DILTIAZEM HCL (CARDIZEM) PLEASE NOTE THE REDUCTION IN YOUR SYNTHROID FROM 125 MCG TO 75 MCG DAILY NEW PRESCRIPTIONS PROPRANOLOL HCL (INDERAL) 20 MG, TAKE ONE TABLET BY MOUTH TWICE DAILY SYNTHROID 75 MCG, TAKE ONE TABLET BY MOUTH BEFORE BREAKFAST DAILY ACTIVITY GET PLENTY OF REST AT HOME. GRADUALLY INCREASE YOUR ACTIVITY LEVEL ACCORDING TO YOUR TOLERATION DIET CONSISTENT CARBS SUMMARY THE PATIENT IS ALERT AND ORIENTED X3. SHE CURRENTLY RESIDES AT HOME ALONE. HER DAUGHTERS ARE SUPPORTIVE OF HER NEEDS WHEN NECESSARY. SHE HAS BEEN USING A ROLLING WALKER FOR AMBULATION HERE. WE HAVE ADVISED HER TO USE HER WALKER AT HOME TO ASSIST WITH MOBILITY. SHE IS AGREEABLE. SHE ALSO HAS A WHEELCHAIR FOR LONG DISTANCE MOBILITY, A SHOWER CHAIR, OXYGEN, NEBULIZER AND A HOSPITAL BED. SHE DESIRES TO RETURN HOME AT DISCHARGE. SHE AND HER DAUGHTER DECLINED REFERRAL OFFERS FOR PHYSICAL THERAPY AND OCCUPATIONAL THERAPY. THE PATIENT'S NEUROLOGICAL STATUS IS INTACT AT DISCHARGE. HER SPEECH IS CLEAR AND APPROPRIATE. SHE IS ABLE TO MOVE ALL HER EXTREMITIES WITH REQUEST OR AT WILL. HER TREMORS TO HER ARMS/HANDS HAVE SUBSIDED. HYDRATION AND NUTRITIONAL STATUS ARE VERY GOOD. MS. FONTANEZ AND HER DAUGHTER ARE AWARE AND AGREEABLE FOR TODAY'S DISCHARGE PLANS. CURRENT CODE STATUS DO NOT RESUSCITATE HALIMA NICK, HEAD CHAR FILTER TANK TENDER GUMARO ORTIZ M.D.
[2017-11-05 14:47] VITALS: BP 113/56; TEMP 97.6
--- NOTE | 2017-11-07 13:55 | PN ---
DATE OF SERVICE: 11/03/17 SUBJECTIVE: The patient is doing well. Shacking extremely less not much in tremors. The patient's Synthroid dose was decreased. She is on Inderal. Blood pressure and medical condition are stable. REVIEW OF SYSTEMS: CONSTITUTIONAL: No night sweats. No fatigue, malaise, lethargy. No fever or chills. HEENT: Eyes: No visual changes. No eye pain. No eye discharge. ENT: No runny nose. No epistaxis. No sinus pain. No sore throat. No odynophagia. No congestion. RESPIRATORY: No cough, no congestion. No hemoptysis. No shortness of breath. CARDIOVASCULAR: No angina symptoms. No CHF symptoms. No atypical chest pain for CAD. No palpitations. No orthopnea. GASTROINTESTINAL: No abdominal pain. No nausea or vomiting. No diarrhea or constipation. No hematemesis. No hematochezia. Appetite has improved. GENITOURINARY: No urgency. No frequency. No dysuria. No hematuria. No obstructive symptoms. No discharge. No pain. No significant abnormal bleeding. MUSCULOSKELETAL: No musculoskeletal pain; no joint swelling. NEUROLOGICAL: No headache. No neck pain. No syncope. No seizures. No dizziness. Tremors are more or less under control. PSYCHIATRIC: Not anxious. No depression. No suicidal thoughts. No homicidal thoughts. SKIN: No rash. No lesions. No wounds. ENDOCRINE: No unexplained weight loss. No weight gain. HEMATOLOGIC/LYMPHATIC: No anemia. No purpura. No petechiae. No prolonged or excessive bleeding. No palpable lymph nodes. PHYSICAL EXAMINATION: HEENT: Head normocephalic, atraumatic. Eyes: Extraocular muscles are intact. Pupils are equal, round and reactive to light and accommodation. Ears: No lesions. Nose appeared normal. Throat: No exudate or erythema. NECK: Supple. No JVD, no carotid bruit. No lymphadenopathy or thyromegaly. LUNGS: Decreased breath sounds but clear to auscultation. Percussion note normal. Chest symmetrical. HEART: S1, S2, no S3. No murmurs. No cyanosis or clubbing. No ascites. Pulses: Dorsalis pedis and posterior tibial pulses +1 to +2 both sides. ABDOMEN: Soft. Nontender. Bowel sounds active. No CVA tenderness. No mass felt. EXTREMITIES: No edema. Full range of motion of all extremities, equal. NEUROLOGIC: No focal deficit. Cranial nerves II through XII are grossly intact. No headache, no double vision or headache. SKIN: Not dry. Intact. Turgor - normal. LYMPHATIC: No palpable lymph nodes/no lymphedema. MUSCULOSKELETAL: Normal joints with no swelling. Muscle tone is normal. ASSESSMENT: 1. No neurological deficit. 2. Speech is normal 3. Swallowing is normal PLAN: 1. Continue Inderal 2. Decrease the dose of Synthroid, decreasing the dose of Synthroid has helped. CONDITION: Stable. TIME SPENT: More than 30 minutes. Plan and coordination of the patient's care discussed in the presence of nurse. RUDY
--- NOTE | 2017-11-07 13:58 | PN ---
DATE OF SERVICE: 11/04/17 SUBJECTIVE: The patient is doing well, she is sleeping. I woke her up. The patient's appetite has improved. She says that she is shaking much less and sleeping better. REVIEW OF SYSTEMS: CONSTITUTIONAL: No night sweats. No fatigue, malaise, lethargy. No fever or chills. HEENT: Eyes: No visual changes. No eye pain. No eye discharge. ENT: No runny nose. No epistaxis. No sinus pain. No sore throat. No odynophagia. No congestion. RESPIRATORY: No cough, no congestion. No hemoptysis. No shortness of breath. CARDIOVASCULAR: No angina symptoms. No CHF symptoms. No atypical chest pain for CAD. No palpitations. No orthopnea. GASTROINTESTINAL: No abdominal pain. No nausea or vomiting. No diarrhea or constipation. No hematemesis. No hematochezia. GENITOURINARY: No urgency. No frequency. No dysuria. No hematuria. No obstructive symptoms. No discharge. No pain. No significant abnormal bleeding. MUSCULOSKELETAL: No musculoskeletal pain; no joint swelling. NEUROLOGICAL: No headache. No neck pain. No syncope. No seizures. No dizziness. PSYCHIATRIC: Not anxious. No depression. No suicidal thoughts. No homicidal thoughts. SKIN: No rash. No lesions. No wounds. ENDOCRINE: No unexplained weight loss. No weight gain. HEMATOLOGIC/LYMPHATIC: No anemia. No purpura. No petechiae. No prolonged or excessive bleeding. No palpable lymph nodes. PHYSICAL EXAMINATION: GENERAL: The patient is oriented to time, place and person. HEENT: Head normocephalic, atraumatic. Eyes: Extraocular muscles are intact. Pupils are equal, round and reactive to light and accommodation. Ears: No lesions. Nose appeared normal. Throat: No exudate or erythema. NECK: Supple. No JVD, no carotid bruit. No lymphadenopathy or thyromegaly. LUNGS: Clear to auscultation. Percussion note normal. Chest symmetrical. HEART: S1, S2, no S3. No murmurs. No cyanosis or clubbing. No ascites. Pulses: Dorsalis pedis and posterior tibial pulses +1 to +2 both sides. ABDOMEN: Soft. Nontender. Bowel sounds active. No CVA tenderness. No mass felt. EXTREMITIES: No edema. Full range of motion of all extremities, equal. NEUROLOGIC: No focal deficit. Cranial nerves II through XII are grossly intact. No headache, no double vision or headache. SKIN: Not dry. Intact. Turgor - normal. LYMPHATIC: No palpable lymph nodes/no lymphedema. MUSCULOSKELETAL: Normal joints with no swelling. Muscle tone is normal. ASSESSMENT: 1. Neurological status has improved, no dysarthria 2. Speech is normal 3. Maybe more possible that probably had TIA but carotid scan is normal, MRI. CT scan is negative. PLAN: 1. The patient is on Xarelto with atrial fibrillation 2. Decreasing the dose of Synthroid and putting her on Inderal has helped a lot CONDITION: Stable. TIME SPENT: More than 30 minutes. Plan and coordination of the patient's care discussed in the presence of nurse. RUDY
--- NOTE | 2017-11-08 09:26 | PN ---
DATE OF SERVICE: 11/02/17 SUBJECTIVE: The patient was seen and examined with the nurse practitioner. The patient's condition is stable. No neurological deficits. PHYSICAL EXAMINATION: HEENT: Head normocephalic, atraumatic. Eyes: Extraocular muscles are intact. Pupils are equal, round and reactive to light and accommodation. Ears: No lesions. Nose appeared normal. Throat: No exudate or erythema. NECK: Supple. No JVD, no carotid bruit. No lymphadenopathy or thyromegaly. LUNGS: Clear to auscultation. Percussion note normal. Chest symmetrical. HEART: S1, S2, no S3. No murmurs. No cyanosis or clubbing. No ascites. Pulses: Dorsalis pedis and posterior tibial pulses +1 to +2 both sides. ABDOMEN: Soft. Nontender. Bowel sounds active. No CVA tenderness. No mass felt. EXTREMITIES: No edema. Full range of motion of all extremities, equal. NEUROLOGIC: The patient has tremors which looks like essential tremors. No focal deficit. Cranial nerves II through XII are grossly intact. No headache, no double vision or headache. SKIN: Not dry. Intact. Turgor - normal. LYMPHATIC: No palpable lymph nodes/no lymphedema. MUSCULOSKELETAL: Normal joints with no swelling. Muscle tone is normal. ASSESSMENT: The patient probably has essential tremors. The daughter is in the room and discussed. PLAN: 1. Discontinue Cardizem and put her on Inderal 20 mg twice a day. 2. Also decrease the dose of Synthroid to 75 from 125. See if there is improvement in the tremors or not. TIME SPENT: More than 30 minutes. Plan and coordination of the patient's care discussed in the presence of nurse. RUDY
--- NOTE | 2017-11-08 10:44 | DS ---
DATE OF SERVICE: 11/05/17 FINAL DIAGNOSIS: WEAKNESS, IMPROVED SLURRED SPEECH, IMPROVED HEADACHE CARDIOMEGALY HYPERTENSION HISTORY OF A-FIB (ON XARELTO) CHF DYSLIPIDEMIA COPD, OXYGEN DEPENDENT GERD LARGE HIATAL HERNIA (CXR 11/03/17) NEUROPATHY OSTEOARTHRITIS SLEEP APNEA (C-PAP) COLORECTAL CANCER S/P HEMICOLECTOMY, RIGHT; 2006 ANXIETY FORMER SMOKER LAST VITALS: Temp Pulse Resp BP Pulse Ox 97.8 F 53 L 14 141/58 H 98 TAKE THESE MEDICATIONS AT HOME: Acetaminophen (Tylenol) 1,000 mg PO DAILY [facility] Acetaminophen/Diphenhydramine 500-25 1 TAB PO BEDTIME Albuterol Sulfate (Proair Hfa) 2 puff IH QID PRN Albuterol Sulfate (Albuterol 0.083% Neb) 1 vial NEB QID PRN Ascorbic Acid (Vitamin C) 1,000 mg PO DAILY Bisoprolol Fumarate (Zebeta) 10 mg PO DAILY [facility] Budesonide/Formoterol Fumarate (Symbicort 160-4.5 Mcg Inhaler) 2 puff IH BID [facility] Calcium Carbonate/Vitamin D3 1 tab PO BID Calcium Polycarbophil [Fibertab] 625 mg PO DAILY [facility] Certirizine HCL 10 mg PO DAILY Furosemide (Lasix Tab) 20 mg PO QDAC [facility] Gabapentin (Neurontin) 600 mg PO BID [facility] Glucosamine Complex Tab 1,500 mg PO BEDTIME Levothyroxine Sodium (Synthroid) 75 mcg PO QDAC [facility] Omeprazole (Prilosec) 40 mg PO QDAC [facility] Potassium Chloride (Micro-K Cap) 10 meq PO DAILY [facility] Propranolol HCl (Inderal) 20 mg PO BID [facility] Rivaroxaban (Xarelto) 15 mg PO QPM [facility] Tiotropium [place] (Spiriva) 1 cap IH DAILY [facility] Tramadol HCL 1 Tab PO BID PRN Vitamin B Complex (Balanced B-100) 1 tab PO BEDTIME [facility] ALLERGIES: adhesive Adverse Reaction (Verified 07/13/13 23:09) Penicillins Adverse Reaction (Verified 04/27/13 22:31) sulfamethoxazole [From Bactrim] Adverse Reaction (Verified 04/27/13 22:31) trimethoprim [From Bactrim] Adverse Reaction (Verified 04/27/13 22:31) NEW PRESCRIPTIONS: PROPRANOLOL HCL (INDERAL) 20 MG, TAKE ONE TABLET BY MOUTH TWICE DAILY SYNTHROID 75 MCG, TAKE ONE TABLET ON AN EMPTY STOMACH EVERY MORNING DO NOT TAKE YOUR CARDIZEM PLEASE NOTE THE DECREASE IN YOUR SYNTHROID LISTED ABOVE SMOKING: FORMER SMOKER NONE NOW DISEASE SPECIFIC EDUCATION: WEAKNESS S/S TIA AND CVA HOME MEDICATIONS AND CHANGES NEW MEDICATIONS FOLLOW UP PLAN: DISCHARGE HOME TODAY RETURN TO SEE DR. ORTIZ ON 11/12/17 AT 10l:45 A.M. RESUME YOUR HOME MEDICATIONS PER LIST PROVIDED BY THE NURSING STAFF DO NOT TAKE YOUR DILTIAZEM HCL (CARDIZEM) PLEASE NOTE THE REDUCTION IN YOUR SYNTHROID FROM 125 MCG TO 75 MCG DAILY ACTIVITY: GET PLENTY OF REST AT HOME. GRADUALLY INCREASE YOUR ACTIVITY LEVEL ACCORDING TO YOUR TOLERATION DIET: CONSISTENT CARBS HOSPITAL COURSE: This is an 87 year old white female who was brought into the emergency room with changes in speech. She had been experiencing worsening weakness of the course of the past [address] scan of the brain was normal. Upon on examination her speech was abnormal; not slurred however she seemed to be stuttering and was experiencing tremors in her right hand. She does have any neurological deficits. No drooping of the face. No difficulty swallowing. We did an MRI of the brain which was normal. She does have a history of severe COPD and oxygen dependant. Chest x-ray was also normal as well as U/A. Chest x- ray showed cardiomegaly, she had had a recent echo in May 2017. She was admitted initially had showed slight dehydration and was placed on normal saline at 75cc an hour. Again we did an MRI following admission which was normal. It was found that her TSH was low and T4 elevated so we decreased her Synthroid from 125mcg to 75mcg as we thought that this might be contributing to some of her tremors. We discontinued her Cardizem and placed her on Inderal 20mg to take twice daily in hopes this would help control her blood pressure and heart rate as well as help the tremors that she was experiencing. This did help with each day her speech continued to improved as well as her weakness has improved. We discontinued her fluids after the second day. She has declined PT/ OT at home. The new medications have been reviewed with her. We will recheck her TSH and T4 in the office when she comes next week. She will be discharged in stable condition today. We will followup with her closely. TIME SPENT: More than 60 minutes. RUDY
--- NOTE | 2017-11-08 11:00 | PN ---
CODING FOR BILLING 10/31/17 LEVEL 5 11/01/17 INTERMEDIATE 11/02/17 INTERMEDIATE 11/03/17 INTERMEDIATE 11/04/17 INTERMEDIATE 11/05/17 DISCHARGE MTDD
--- NOTE | 2017-11-08 11:04 | PN ---
DATE OF SERVICE: 11/05/17 DISCHARGE NOTE SUBJECTIVE: 87-year-old white female was hospitalized with shaky feeling, some neurological findings like dysarthria. The patient's entire neurological workup was negative with MRI and CT scan of head. The patient clinically was negative. She had familial tremor type of findings. Her synthroid dose was decreased because of high thyroid level and also she was put on Inderal along with beta sue and Cardizem was discontinued. The patient responded to this change very well. At the time of discharge she barely had much shaking, her voice had improved. Condition overall improved. TIME SPENT: More than 30 minutes. Plan and coordination of the patient's care discussed in the presence of nurse. RUDY
== END 2017-11-05 14:43 | disposition home or self-care (01) | DRG 93 ==
LOC: ED 15:16 → MEDSURG B 17:37
PROVIDERS: ADMIT Internal Medicine; ATTEND Internal Medicine
DX: R47.81 Slurred speech (principal); R51 Headache; I11.0 Hypertensive heart disease with heart failure; I50.9 Heart failure, unspecified; I48.91 Unspecified atrial fibrillation; Z79.01 Long term (current) use of anticoagulants; R25.1 Tremor, unspecified; R68.84 Jaw pain; J44.9 Chronic obstructive pulmonary disease, unspecified; E78.5 Hyperlipidemia, unspecified; K21.9 Gastro-esophageal reflux disease without esophagitis; K44.9 Diaphragmatic hernia without obstruction or gangrene; G62.9 Polyneuropathy, unspecified; G47.30 Sleep apnea, unspecified; F41.9 Anxiety disorder, unspecified; R60.0 Localized edema; E66.9 Obesity, unspecified
CPT/HCPCS: 36415; 80053; 81001; 82550; 82553; 82962; 84436; 84439; 84443; 84484; 85025; 85651; 93005; 93010; 99284

== ENCOUNTER 2018-03-10 22:44 | Inpatient (IN) | payer OTHER ==
[2018-03-10] MEDS ORDERED: DUONEB NEB STA (22:49)
[2018-03-10] MEDS ORDERED: SOLU-MEDROL 125 MG IVP STA (22:50)
[2018-03-10] MEDS ORDERED: ZOFRAN 4 MG/2 ML IVP STA (22:51)
--- NOTE | 2018-03-10 23:23 | DI ---
EXAM: Portable chest HISTORY: , shortness of breath COMPARISON: Two-view chest 11/01/2017 FINDINGS: The cardiac silhouette is enlarged. Atherosclerotic changes are seen involving the aortic arch.. They are benign granulomatous changes.. There is mild cephalization of the bone vasculature without overt failure or effusion.. There is a hiatal hernia IMPRESSION: Cardiomegaly with cephalization of the pulmonary vasculature without overt failure or effusion. Hiatal hernia
--- NOTE | 2018-03-10 23:50 | ED.PDOC ---
General ED Provider: Dr. LUKE CABRERA Chief Complaint: Shortness of Air Stated Complaint: shortness of breath and productive cough this evening. Is on home 2 liters of oxygen. She is A DNR. Had some nause due to motion sickness with the ambulance ride. Time Seen by Physician: 23:00 Mode of Arrival: Ambulance Information Source: Patient, EMT Exam Limitations: No limitations Primary Care Provider: GUMARO ORTIZ Nursing and Triage Documentation Reviewed and Agree: Yes Does patient meet sepsis criteria?: Yes If yes, has appropriate treatment been initiated?: Yes System Inflammatory Response Syndrome: Pulse >90 BPM, Resp >20/Minute Sepsis Protocol: For patient's 13 years and over: Temp is 96.8 and below OR 101 and greater Pulse >90 BPM Resp >20/minute Acutely Altered Mental Status Are patient's symptoms suggestive of a new infection, such as: -Pneumonia -Skin, Soft Tissue -Endocarditis -UTI -Bone, Joint Infection -Implantable Device -Acute Abdominal Infection -Wound Infection -Meningitis -Blood Stream Catheter Infection -Unknown Respiratory Complaint Exam - Shortness of Air Complaint/Exam Onset/Duration: 4 hours Symptoms Are: Still present Timing: Constant Initial Severity: Moderate Current Severity: Severe Character: Reports: Dyspnea at rest Aggravating: Reports: URI, Weather Alleviating: Reports: Bronchodilators, Oxygen Associated Signs and Symptoms: Reports: Cough, Wheezing, Chest pain with cough, Chest pain (right sided ), Rapid breathing, Labored breathing. Denies: Fever, Chills, Diaphoresis, Edema Related History: Reports: Similar episode Pulmonary Embolism Risk Factors: Reports: None Cardiac Risk Factors: Reports: None Home Oxygen Use: Yes (2 liters ) Recent Stress Test: No Recent Echo/LV Function: No Respiratory Distress: Severe Stridor Present: No Subcutaneous Emphysema: No Accessory Muscle Use: Yes Retractions: Supraclavicular Diminished Breath Sounds: Yes Prolonged Expiratory Phase: Yes Unable to Speak Full Sentences: Yes Fatigue: No Leg Swelling: No Elsa's Sign Present: No Grunting Respirations: No Kussmaul Respirations: No Differential Diagnoses: CHF, COPD Exacerbation, Pneumonia Quality Indicator For Non-Traumatic Chest Pain/Syncope: EKG Performed Review of Systems - Review Of Systems Constitutional: Reports: No symptoms Eyes: Reports: No symptoms Ears, Nose, Mouth, Throat: Reports: No symptoms Respiratory: Reports: Cough, Short of air, Wheezing Cardiac: Reports: Chest pain GI: Reports: No symptoms : Reports: No symptoms Musculoskeletal: Reports: No symptoms Skin: Reports: No symptoms Neurological: Reports: No symptoms Endocrine: Reports: No symptoms Hematologic/Lymphatic: Reports: No symptoms All Other Systems: Reviewed and Negative Past Medical History - Past Medical History Previously Healthy: Yes Endocrine: Reports: Dyslipidemia Cardiovascular: Reports: Hypertension Respiratory: Reports: None Hematological: Reports: None Gastrointestinal: Reports: None Genitourinary: Reports: None Neuro/Psych: Reports: None Musculoskeletal: Reports: None Cancer: Reports: None Last Menstrual Period: na - Surgical History General Surgical History: Reports: None - Family History Family History: Reports: None - Social History Smoking Status: Former smoker Hx Substance Use: No Alcohol Screening: None - Immunizations Tetanus Shot up to Date: No Physical Exam - Physical Exam Appearance: Ill-appearing, Obese Ill-appearing: Mild Pain Distress: Moderate Neck: Supple Respiratory: Breath sounds diminished, Rhonchi, Wheezes Cardiovascular: RRR Musculoskeletal: Normal strength, ROM intact, No edema, No calf tenderness Skin: Warm, Dry, Normal color Neurological: Alert, Oriented Psychiatric: Anxious Re-Evaluation - Re-Evaluation Time of Re-Evaluation: 23:50 Vital Signs Stable: Yes (BP 129/65, sat 97% on 2 liters. ) Physician Notification - Case Discussed Physician Notified: Dr Ortiz Time of Notification: 00:30 (Admit to SCU, Place on steroids, Telemetry, EKG, Nebs) Critical Care Note - Critical Care Note Total Time (mins): 45 Course - Course Hematology/Chemistry: 03/10/18 23:00 03/10/18 23:00 Orders, Labs, Meds: Lab Review 03/10/18 03/10/18 03/10/18 23:00 23:00 23:00 WBC 10.43 H RBC 4.07 L Hgb 11.9 L Hct 37.1 MCV 91.2 MCH 29.2 MCHC 32.1 RDW Coeff of Bk 14.6 Plt Count 218 Immature Gran % (Auto) 0.5 Neut % (Auto) 78.4 Lymph % (Auto) 10.0 [place] % (Auto) 7.8 Eos % (Auto) 2.7 Baso % (Auto) 0.6 Immature Gran # (Auto) 0.1 Neut # (Auto) 8.2 H Lymph # (Auto) 1.0 [place] # (Auto) 0.8 Eos # (Auto) 0.3 Baso # (Auto) 0.1 Puncture Site O2 Saturation ABG pH ABG pCO2 ABG pO2 ABG HCO3 ABG Total CO2 ABG Base Excess Jaxon Test O2 Delivery Device Oxygen Liter Flow Sodium 134.7 L Potassium 4.53 Chloride 100.0 Carbon Dioxide 31.2 H Anion Gap 8.03 BUN 14.9 Creatinine 0.77 Estimated GFR (MDRD) 71.00 BUN/Creatinine Ratio 19.35 Glucose 120.6 H Lactic Acid Calcium 9.56 Total Bilirubin 0.47 AST 23.6 ALT 19.1 Alkaline Phosphatase 68.8 Total Creatine Kinase < 20.0 L Troponin I < 0.012 NT-Pro-B Natriuret Pep 4480.000 H Total Protein 6.75 Albumin 3.91 Globulin 2.84 Albumin/Globulin Ratio 1.37 Procalcitonin < 0.05 03/10/18 03/10/18 23:00 23:20 WBC RBC Hgb Hct MCV MCH MCHC RDW Coeff of Bk Plt Count Immature Gran % (Auto) Neut % (Auto) Lymph % (Auto) [place] % (Auto) Eos % (Auto) Baso % (Auto) Immature Gran # (Auto) Neut # (Auto) Lymph # (Auto) [place] # (Auto) Eos # (Auto) Baso # (Auto) Puncture Site R rad O2 Saturation 98.0 ABG pH 7.44 ABG pCO2 40.5 ABG pO2 93.0 ABG HCO3 27.7 H ABG Total CO2 29 H ABG Base Excess 4 H Jaxon Test + O2 Delivery Device Nc Oxygen Liter Flow 2.00 Sodium Potassium Chloride Carbon Dioxide Anion Gap BUN Creatinine Estimated GFR (MDRD) BUN/Creatinine Ratio Glucose Lactic Acid 1.05 Calcium Total Bilirubin AST ALT Alkaline Phosphatase Total Creatine Kinase Troponin I NT-Pro-B Natriuret Pep Total Protein Albumin Globulin Albumin/Globulin Ratio Procalcitonin Orders Category Date Time Status ABG DRAW REQUEST Stat CARDIO 03/10/18 22:50 Completed EKG-(ED ONLY) Stat CARDIO 03/10/18 22:52 Completed NEBULIZER TREATMENT Stat CARDIO 03/10/18 22:50 Completed ED HOST AND HOSTESS APPLIED .ONCE EMERGENCY 03/10/18 22:49 Active ED IV/MEDIPORT/POWERPORT .ONCE EMERGENCY 03/10/18 22:49 Active ABG Stat LAB 03/10/18 23:20 Completed BLOOD CULTURE (ED ONLY) Stat LAB 03/10/18 23:00 Received CBC W/ AUTO DIFF Stat LAB 03/10/18 23:00 Completed COMPREHENSIVE METABOLIC PANEL Stat LAB 03/10/18 23:00 Completed CREATINE KINASE Stat LAB 03/10/18 23:00 Completed LACTIC ACID Stat LAB 03/10/18 23:00 Completed NT-PROBNP Stat LAB 03/10/18 23:00 Completed PROCALCITONIN Stat LAB 03/10/18 23:00 Completed TROPONIN I Stat LAB 03/10/18 23:00 Completed 0.9 % Sodium Chloride [Saline Flush] MEDS 03/10/18 22:49 Ordered 1 syr IVF PRN PRN Furosemide [Lasix] MEDS 03/10/18 23:53 Discontinued 20 mg IVP ONCE STA Ipratropium/Albuterol Neb [Duoneb] MEDS 03/10/18 22:49 Discontinued 1 vial NEB ONCE STA Methylprednisolone Sod Succ/Pf [Solu-Medrol 125 mg] MEDS 03/10/18 22:50 Discontinued 125 mg IVP ONCE STA Ondansetron HCl/Pf [Zofran 4 mg/2 ml] MEDS 03/10/18 22:51 Discontinued 4 mg IVP ONCE STA CHEST, 1V AP ONLY Stat RADS 03/10/18 22:49 Completed Medications Generic Name Dose Route Start Last Admin Trade Name Freq PRN Reason Stop Dose Admin Sodium Chloride 1 syr 03/10/18 22:49 03/11/18 00:25 Saline Flush IVF 1 syr PRN PRN Administration To flush IV Discontinued Medications Generic Name Dose Route Start Last Admin Trade Name Freq PRN Reason Stop Dose Admin Albuterol/Ipratropium 1 vial 03/10/18 22:49 03/10/18 22:56 Duoneb NEB 03/10/18 22:50 1 vial ONCE STA Administration Furosemide 20 mg 03/10/18 23:53 03/11/18 00:24 Lasix IVP 03/10/18 23:54 20 mg ONCE STA Administration Methylprednisolone Sodium Succinate 125 mg 03/10/18 22:50 03/10/18 23:15 Solu-Medrol 125 Mg IVP 03/10/18 22:51 125 mg ONCE STA Administration Ondansetron HCl 4 mg 03/10/18 22:51 03/10/18 23:13 Zofran 4 Mg/2 Ml IVP 03/10/18 22:52 4 mg ONCE STA Administration Vital Signs: Temp Pulse Resp BP Pulse Ox 03/10/18 22:49 98.2 F 68 24 155/103 H 88 L Departure - Departure Time of Disposition: 00:31 Disposition: HOME SELF-CARE Discharge Problem: COPD with acute exacerbation CHF exacerbation Qualifiers: Heart failure type: unspecified Qualified Code(s): I50.9 - Heart failure, unspecified Condition: Stable Pt referred to PMD for follow-up: Yes IPMP verified?: No Allergies/Adverse Reactions: Allergies adhesive Adverse Reaction (Verified 07/13/13 23:09) Penicillins Adverse Reaction (Verified 04/27/13 22:31) sulfamethoxazole [From Bactrim] Adverse Reaction (Verified 04/27/13 22:31) trimethoprim [From Bactrim] Adverse Reaction (Verified 04/27/13 22:31) Home Medications: Ambulatory Orders Acetaminophen [Mapap] 1,000 mg PO DAILY 04/27/13 Albuterol Sulfate 0.083% Neb [Albuterol 0.083% Neb] 1 vial INH QID PRN 04/27/13 Albuterol Sulfate [Proair Hfa] 2 puff INH QID PRN 04/27/13 Ascorbic Acid [Vitamin C] 1,000 mg PO DAILY 04/27/13 Budesonide/Formoterol Fumarate [Symbicort 160-4.5 Mcg Inhaler] 2 puff INH BID Calcium Carbonate/Vitamin D3 [Calcium 600 + Vit D Tablet] 1 tab PO BID 04/27/13 Calcium Polycarbophil [Fibertab] 625 mg PO DAILY 04/27/13 Cetirizine HCl 10 mg PO DAILY 04/27/13 Gabapentin 600 mg PO BID 04/27/13 Glucosamine/D3/Boswellia Becca [Glucosamine Complex Tablet] 1,500 mg PO BEDTIME 04/27/13 Omeprazole [Prilosec] 40 mg PO DAILY 04/27/13 Tiotropium [place] [Spiriva] 18 mcg INH DAILY 04/27/13 Vitamin B Complex 1 tab PO BEDTIME 04/27/13 Acetaminophen/Diphenhydramine [Acetaminophen-Diphenhyd 500-25] 1 tab PO BEDTIME 05/24/17 Rivaroxaban [Xarelto] 1 tab PO DAILY 05/24/17 Tramadol HCl 1 tab PO BID PRN 05/24/17 Bisoprolol Fumarate 10 mg PO DAILY #30 tablet 05/28/17 Furosemide [Lasix] 20 mg PO DAILY #30 tablet 05/28/17 Potassium Chloride [K-Tab ER] 10 meq PO DAILY #30 tablet.er 05/28/17 Levothyroxine Sodium [Synthroid] 75 mcg PO QDAC #30 tablet 11/05/17 Propranolol HCl 20 mg PO BID #60 tablet 11/05/17
[2018-03-10] MEDS ORDERED: LASIX IVP STA (23:53)
[2018-03-11] MEDS ORDERED: ZOFRAN 4 MG/2 ML IVP PRN (00:40)
[2018-03-11] MEDS ORDERED: DUONEB NEB PRN (00:40)
[2018-03-11] MEDS ORDERED: ULTRAM PO PRN (00:43)
[2018-03-11 01:52] VITALS: BMI 38.7
[2018-03-11] MEDS: DUONEB NEB SCH ×4 (05:36→20:05)
[2018-03-11] MEDS: SYNTHROID PO SCH (05:43)
[2018-03-11] MEDS: SOLU-MEDROL 125 MG IVP SCH ×3 (05:43→21:15)
[2018-03-11] MEDS: SPIRIVA IH SCH (08:55)
[2018-03-11] MEDS: SYMBICORT 160-4.5 MCG INHALER IH SCH ×2 (08:55→20:37)
[2018-03-11] MEDS: NEURONTIN PO SCH ×2 (08:57→20:35)
[2018-03-11] MEDS: ZITHROMAX PO SCH (08:58)
[2018-03-11] MEDS: INDERAL PO SCH ×2 (08:58→20:35)
[2018-03-11] MEDS: ZEBETA PO SCH (08:58)
[2018-03-11] MEDS: TYLENOL PO SCH ×2 (08:58→20:36)
[2018-03-11] MEDS: XARELTO PO SCH (08:59)
[2018-03-11] MEDS ORDERED: LASIX IVP SCH (09:00)
[2018-03-11] MEDS ORDERED: NON-FORMULARY MEDICATION (Potassium Chloride [K-Tab Er] 10 MEQ) PO SCH (09:00)
[2018-03-11] MEDS ORDERED: [UNRECOGNIZED DRUG - OTHER] PO SCH (09:00)
[2018-03-11] MEDS ORDERED: RIVAROXABAN PO SCH (09:00)
[2018-03-11] MEDS ORDERED: ACETAMINOPHEN 1000 MG PO SCH (09:00)
[2018-03-11] MEDS: MICRO-K CAP PO SCH (09:00)
[2018-03-11] MEDS ORDERED: NON-FORMULARY MEDICATION (Omeprazole [Prilosec] 40 MG) PO SCH (09:00)
[2018-03-11] MEDS ORDERED: NON-FORMULARY MEDICATION (Ascorbic Acid [Vitamin C] 1,000 MG) PO SCH (09:00)
[2018-03-11] MEDS ORDERED: NON-FORMULARY MEDICATION (Cetirizine Hcl [Cetirizine Hcl] 10 MG) PO SCH (09:00)
[2018-03-11] MEDS ORDERED: BISOPROLOL FUMARATE 10 MG PO SCH (09:00)
[2018-03-11] MEDS ORDERED: PROPRANOLOL HCL 20 MG PO SCH (09:00)
[2018-03-11] MEDS ORDERED: CALCIUM CARBONATE PO SCH (09:00)
[2018-03-11] MEDS ORDERED: NON-FORMULARY MEDICATION (Gabapentin [Gabapentin] 600 MG) PO SCH (09:00)
[2018-03-11] MEDS ORDERED: VITAMIN D3 PO SCH (09:00)
[2018-03-11] MEDS: CLARITIN PO SCH (09:01)
[2018-03-11] MEDS: VITAMIN C PO SCH (09:01)
[2018-03-11] MEDS: CALCIUM 500 + VIT D 200 MG TABLET PO SCH ×2 (09:01→20:34)
[2018-03-11] MEDS: CALCIUM POLYCARBOPHIL 625 MG PO SCH (09:02)
[2018-03-11] MEDS: PRILOSEC PO SCH (09:10)
--- NOTE | 2018-03-11 11:32 | PCM.PROG ---
Attending Provider: ATTENDING PROVIDER: Dr. GUMARO ORTIZ DATE OF SERVICE: 03/11/18 SUBJECTIVE: This 87 year old WHITE/ F was hospitalized 03/11/18 with acute respiratory failure from CHF and acute bronchitis from COPD. The patient was treated with IV Lasix, steroids and neb treatments. Condition seems to have improved and is in no distress. REVIEW OF SYSTEMS: CONSTITUTIONAL: No night sweats. No fatigue, malaise, lethargy. No fever or chills. HEENT: Eyes: No visual changes. No eye pain. No eye discharge. ENT: No runny nose. No epistaxis. No sinus pain. No odynophagia. No congestion. RESPIRATORY: No cough or congestion at the present time, breathing better. No hemoptysis. No shortness of breath. CARDIOVASCULAR: No angina symptoms. No CHF symptoms. No atypical chest pain for CAD. No palpitations. No PND, no orthopnea.. GASTROINTESTINAL: No abdominal pain. No nausea or vomiting. No diarrhea or constipation. No hematemesis. No hematochezia. GENITOURINARY: No urgency. No frequency. No dysuria. No hematuria. No obstructive symptoms. No discharge. No pain. No significant abnormal bleeding. MUSCULOSKELETAL: No musculoskeletal pain; no joint swelling. NEUROLOGICAL: Awake, alert, oriented to time, place and person. No headache. No neck pain. No syncope. No seizures. No dizziness. PSYCHIATRIC: Not anxious. No depression. No suicidal thoughts. No homicidal thoughts. SKIN: No rash. No lesions. No wounds. ENDOCRINE: No unexplained weight loss. No weight gain. HEMATOLOGIC/LYMPHATIC: No anemia. No purpura. No petechiae. No prolonged or excessive bleeding. No palpable lymph nodes. PHYSICAL EXAMINATION: GENERAL: The patient is awake, alert and oriented, lying in bed in no distress. VITAL SIGNS: Temperature 97.7 F, Pulse 71, Respiratory Rate 16, BP 156/79, Pulse Ox 93% HEENT: Head normocephalic, atraumatic. Eyes: Extraocular muscles are intact. Pupils are equal, round and reactive to light and accommodation. Ears: No lesions. Nose appeared normal. Throat: No exudate or erythema. NECK: Supple. No JVD, no carotid bruit. No lymphadenopathy or thyromegaly. LUNGS: Dry crepitations bilaterally. Percussion note normal. Chest symmetrical. HEART: S1, S2, no S3. No murmurs. No cyanosis or clubbing. No ascites. Pulses: Dorsalis pedis and posterior tibial pulses +1 to +2 both sides. ABDOMEN: Soft. Non-tender. Bowel sounds active. No CVA tenderness. No mass felt. EXTREMITIES: No pedal edema. Full range of motion of all extremities, equal. NEUROLOGIC: No focal deficit. Cranial nerves II through XII are grossly intact. No headache, no double vision or headache. SKIN: Warm and dry. Intact. Turgor-normal. LYMPHATIC: No palpable lymph nodes/no lymphedema. MUSCULOSKELETAL: Normal joints with no swelling. Muscle tone is normal. LAB REVIEW: 03/11/18 04:45 03/11/18 04:45 03/11/18 04:45: Sodium 135.3 L, Potassium 3.90, Chloride 97.7 L, Carbon Dioxide 32.3 H, Anion Gap 9.20, BUN 14.9, Creatinine 0.73, Estimated GFR (MDRD) 75.00, BUN/Creatinine Ratio 20.41, Glucose 176.6 H D, Calcium 9.54, Total Bilirubin 0.62, AST 26.5, ALT 20.8, Alkaline Phosphatase 67.5, Total Protein 6.78, Albumin 3.94, Globulin 2.84, Albumin/Globulin Ratio 1.38 03/11/18 04:45: WBC 10.88 H, RBC 4.10 L, Hgb 11.6 L, Hct 36.9 L, MCV 90.0, MCH 28.3, MCHC 31.4 L, RDW Coeff of Bk 14.4, Plt Count 209, Immature Gran % (Auto) 1.1, Neut % (Auto) 91.3, Lymph % (Auto) 5.3 L, [place] % (Auto) 1.8, Eos % (Auto) 0.2, Baso % (Auto) 0.3, Immature Gran # (Auto) 0.1, Neut # (Auto) 9.9 H, Lymph # (Auto) 0.6, [place] # (Auto) 0.2 L, Eos # (Auto) 0.0, Baso # (Auto) 0.0 03/10/18 23:20: Puncture Site R rad, O2 Saturation 98.0, ABG pH 7.44, ABG pCO2 40.5, ABG pO2 93.0, ABG HCO3 27.7 H, ABG Total CO2 29 H, ABG Base Excess 4 H, Jaxon Test +, O2 Delivery Device Nc, Oxygen Liter Flow 2.00 03/10/18 23:00: Lactic Acid 1.05 03/10/18 23:00: Procalcitonin < 0.05 03/10/18 23:00: Sodium 134.7 L, Potassium 4.53, Chloride 100.0, Carbon Dioxide 31.2 H, Anion Gap 8.03, BUN 14.9, Creatinine 0.77, Estimated GFR (MDRD) 71.00, BUN/Creatinine Ratio 19.35, Glucose 120.6 H, Calcium 9.56, Total Bilirubin 0.47 , AST 23.6, ALT 19.1, Alkaline Phosphatase 68.8, Total Creatine Kinase < 20.0 L , Troponin I < 0.012, NT-Pro-B Natriuret Pep 4480.000 H, Total Protein 6.75, Albumin 3.91, Globulin 2.84, Albumin/Globulin Ratio 1.37 03/10/18 23:00: WBC 10.43 H, RBC 4.07 L, Hgb 11.9 L, Hct 37.1, MCV 91.2, MCH 29.2, MCHC 32.1, RDW Coeff of Bk 14.6, Plt Count 218, Immature Gran % (Auto) 0.5, Neut % (Auto) 78.4, Lymph % (Auto) 10.0, [place] % (Auto) 7.8, Eos % (Auto) 2.7, Baso % (Auto) 0.6, Immature Gran # (Auto) 0.1, Neut # (Auto) 8.2 H, Lymph # (Auto) 1.0, [place] # (Auto) 0.8, Eos # (Auto) 0.3, Baso # (Auto) 0.1 ASSESSMENT: 1. ACUTE RESPIRATORY FAILURE, COMBINATION OF ACUTE BRONCHITIS AND COPD WITH POSSIBILITY OF CHF. PLAN: 1. Continue IV Lasix, IV steroids and nebs. 2. Zithromax 500 mg p.o. times three days. 3. Daily weights. 4. ABGs on room air. Plan and coordination of the patient's care discussed in the presence of Roller and nurse. CONDITION: Stable SCRIBED BY: FANG ONEAL Water Resources Project Manager scribed while in presence of service performed by Dr. GUMARO ORTIZ on 03/11/18 ([id number])
[2018-03-11] MEDS: BENADRYL PO SCH (20:36)
[2018-03-11] MEDS ORDERED: OCEAN NASAL SPRAY NAS PRN (20:59)
[2018-03-11] MEDS ORDERED: DIPHENHYDRAMINE PO SCH (21:00)
[2018-03-11] MEDS ORDERED: [UNRECOGNIZED DRUG - OTHER] PO SCH (21:00)
[2018-03-11] MEDS ORDERED: ACETAMINOPHEN PO SCH (21:00)
[2018-03-11] MEDS: D3 PO SCH (21:03)
[2018-03-11] MEDS: GLUCOSAMINE PO SCH (21:03)
[2018-03-11] MEDS: BOSWELLIA SERRA PO SCH (21:03)
[2018-03-11] MEDS: [UNRECOGNIZED DRUG - OTHER] PO SCH (21:03)
[2018-03-12] MEDS: DUONEB NEB SCH ×4 (05:05→20:20)
[2018-03-12] MEDS: SYNTHROID PO SCH (05:51)
[2018-03-12] MEDS: SOLU-MEDROL 125 MG IVP SCH ×3 (05:51→20:44)
[2018-03-12] MEDS: LASIX IVP SCH (05:51)
[2018-03-12] MEDS: PRILOSEC PO SCH (05:52)
[2018-03-12] MEDS: SPIRIVA IH SCH (08:46)
[2018-03-12] MEDS: SYMBICORT 160-4.5 MCG INHALER IH SCH ×2 (08:46→20:45)
[2018-03-12] MEDS: INDERAL PO SCH ×2 (08:46→20:42)
[2018-03-12] MEDS: CALCIUM 500 + VIT D 200 MG TABLET PO SCH ×2 (08:46→20:46)
[2018-03-12] MEDS: XARELTO PO SCH (08:46)
[2018-03-12] MEDS: ZEBETA PO SCH (08:46)
[2018-03-12] MEDS: MICRO-K CAP PO SCH (08:46)
[2018-03-12] MEDS: TYLENOL PO SCH ×2 (08:47→20:43)
[2018-03-12] MEDS: VITAMIN C PO SCH (08:47)
[2018-03-12] MEDS: CLARITIN PO SCH (08:47)
[2018-03-12] MEDS: ZITHROMAX PO SCH (08:47)
[2018-03-12] MEDS: NEURONTIN PO SCH ×2 (08:47→20:42)
[2018-03-12] MEDS: CALCIUM POLYCARBOPHIL 625 MG PO SCH (08:48)
--- NOTE | 2018-03-12 09:26 | PCM.PROG ---
Attending Provider: ATTENDING PROVIDER: Dr. GUMARO ORTIZ DATE OF SERVICE: 03/12/18 SUBJECTIVE: This 87 year old WHITE/ F was hospitalized 03/11/18 with shortness of breath and respiratory failure. The patient has a combination of bronchitis, COPD exacerbation and CHF. BNP was noted in May to be less than 400; now more than 3000. She is feeling a lot better and is passing a lot of urine. REVIEW OF SYSTEMS: CONSTITUTIONAL: No night sweats. No fatigue, malaise, lethargy. No fever or chills. HEENT: Eyes: No visual changes. No eye pain. No eye discharge. ENT: No runny nose. No epistaxis. No sinus pain. No odynophagia. No congestion. RESPIRATORY: No cough, no congestion. No hemoptysis. Less shortness of breath. CARDIOVASCULAR: No angina symptoms. No CHF symptoms. No atypical chest pain for CAD. No palpitations. No orthopnea.. GASTROINTESTINAL: No abdominal pain. No nausea or vomiting. No diarrhea or constipation. No hematemesis. No hematochezia. GENITOURINARY: No urgency. No frequency. No dysuria. No hematuria. No obstructive symptoms. No discharge. No pain. No significant abnormal bleeding. MUSCULOSKELETAL: No musculoskeletal pain; no joint swelling. NEUROLOGICAL: Awake, alert, oriented to time, place and person. No headache. No neck pain. No syncope. No seizures. No dizziness. PSYCHIATRIC: Not anxious. No depression. No suicidal thoughts. No homicidal thoughts. SKIN: No rash. No lesions. No wounds. ENDOCRINE: No unexplained weight loss. No weight gain. HEMATOLOGIC/LYMPHATIC: No anemia. No purpura. No petechiae. No prolonged or excessive bleeding. No palpable lymph nodes. PHYSICAL EXAMINATION: GENERAL: The patient is awake, alert and oriented, lying in bed in no distress. VITAL SIGNS: Temperature 97.5 F, Pulse 68, Respiratory Rate 20, BP 149/75, Pulse Ox 98% HEENT: Head normocephalic, atraumatic. Eyes: Extraocular muscles are intact. Pupils are equal, round and reactive to light and accommodation. Ears: No lesions. Nose appeared normal. Throat: No exudate or erythema. NECK: Supple. No JVD, no carotid bruit. No lymphadenopathy or thyromegaly. LUNGS: Decreased breath sounds with dry basilar crepitations. Percussion note normal. Chest symmetrical. HEART: S1, S2, no S3. No murmurs. No cyanosis or clubbing. No ascites. Pulses: Dorsalis pedis and posterior tibial pulses +1 to +2 both sides. ABDOMEN: Soft. Non-tender. Bowel sounds active. No CVA tenderness. No mass felt. EXTREMITIES: No edema. Full range of motion of all extremities, equal. NEUROLOGIC: No focal deficit. Cranial nerves II through XII are grossly intact. No headache, no double vision or headache. SKIN: Warm and dry. Intact. Turgor-normal. LYMPHATIC: No palpable lymph nodes/no lymphedema. MUSCULOSKELETAL: Normal joints with no swelling. Muscle tone is normal. LAB REVIEW: 03/12/18 05:15 03/12/18 05:15 03/12/18 05:15: Sodium 138.0, Potassium 3.90, Chloride 99.0, Carbon Dioxide 33.0 H, Anion Gap 9.90, BUN 19.0 H, Creatinine 0.70, Estimated GFR (MDRD) 79.00 , BUN/Creatinine Ratio 27.14, Glucose 175.0 H, Calcium 9.60, Total Bilirubin 0.40, AST 30.0, ALT 20.0, Alkaline Phosphatase 54.0, Total Protein 6.40, Albumin 3.70, Globulin 2.70, Albumin/Globulin Ratio 1.37 03/12/18 05:15: WBC 15.50 H, RBC 3.98 L, Hgb 11.5 L, Hct 35.5 L, MCV 89.2, MCH 28.9, MCHC 32.4, RDW Coeff of Bk 14.5, Plt Count 228, Immature Gran % (Auto) 0.8, Neut % (Auto) 92.5, Lymph % (Auto) 3.6 L, [place] % (Auto) 3.0, Eos % (Auto) 0.0, Baso % (Auto) 0.1, Immature Gran # (Auto) 0.1, Neut # (Auto) 14.3 H, Lymph # (Auto) 0.6, [place] # (Auto) 0.5, Eos # (Auto) 0.0, Baso # (Auto) 0.0 03/11/18 08:05: Puncture Site R brach, O2 Saturation 91.0 L, ABG pH 7.451 H, ABG pCO2 41.9, ABG pO2 58.0 L*, ABG HCO3 29.2 H, ABG Total CO2 30 H, ABG Base Excess 5 H, Jaxon Test +, FiO2 % 21.0 ASSESSMENT: 1. RESPIRATORY FAILURE SEEMS TO BE UNDER CONTROL 2. COPD 3. CHRONIC BRONCHITIS 4. CHF PLAN: 1. D/C Solu-Medrol 50 mg q.8hr 2. Anticipate D/C tomorrow 3. BNP Plan and coordination of the patient's care discussed in the presence of [employer] Principal Solution Specialist and nurse. EDUCATION: Education carried out about CHF. CONDITION: Stable SCRIBED BY: FANG ONEAL Customer Success Specialist scribed while in presence of service performed by Dr. GUMARO ORTIZ on 03/12/18 ([id number])
[2018-03-12] MEDS: BENADRYL PO SCH (20:42)
[2018-03-12] MEDS: GLUCOSAMINE PO SCH (21:00)
[2018-03-12] MEDS: BOSWELLIA SERRA PO SCH (21:00)
[2018-03-12] MEDS: [UNRECOGNIZED DRUG - OTHER] PO SCH (21:00)
[2018-03-12] MEDS: D3 PO SCH (21:00)
[2018-03-13] MEDS: DUONEB NEB SCH ×4 (05:00→19:48)
[2018-03-13] MEDS: SOLU-MEDROL 125 MG IVP SCH ×3 (05:52→20:33)
[2018-03-13] MEDS: LASIX IVP SCH (05:53)
[2018-03-13] MEDS: SYNTHROID PO SCH (05:53)
[2018-03-13] MEDS: PRILOSEC PO SCH (05:53)
[2018-03-13] MEDS: SYMBICORT 160-4.5 MCG INHALER IH SCH ×2 (09:05→20:38)
[2018-03-13] MEDS: INDERAL PO SCH ×2 (09:05→20:33)
[2018-03-13] MEDS: TYLENOL PO SCH ×2 (09:06→20:33)
[2018-03-13] MEDS: ZITHROMAX PO SCH (09:06)
[2018-03-13] MEDS: VITAMIN C PO SCH (09:06)
[2018-03-13] MEDS: ZEBETA PO SCH (09:06)
[2018-03-13] MEDS: MICRO-K CAP PO SCH (09:07)
[2018-03-13] MEDS: CALCIUM 500 + VIT D 200 MG TABLET PO SCH ×2 (09:07→20:33)
[2018-03-13] MEDS: CLARITIN PO SCH (09:07)
[2018-03-13] MEDS: NEURONTIN PO SCH ×2 (09:07→20:34)
[2018-03-13] MEDS: SPIRIVA IH SCH (09:07)
[2018-03-13] MEDS: XARELTO PO SCH (09:08)
[2018-03-13] MEDS: CALCIUM POLYCARBOPHIL 625 MG PO SCH (09:38)
--- NOTE | 2018-03-13 09:46 | PCM.PROG ---
Attending Provider: ATTENDING PROVIDER: Dr. GUMARO ORTIZ DATE OF SERVICE: 03/13/18 SUBJECTIVE: This 87 year old WHITE/ F was hospitalized 03/11/18 with respiratory failure, combination of COPD/bronchitis/CHF. She is feeling better with less shortness of breath. Symptoms of bronchitis and CHF seem to be under control but BNP was higher. Kidney function has not changed much. REVIEW OF SYSTEMS: CONSTITUTIONAL: No night sweats. No fatigue, malaise, lethargy. No fever or chills. HEENT: Eyes: No visual changes. No eye pain. No eye discharge. ENT: No runny nose. No epistaxis. No sinus pain. No odynophagia. No congestion. RESPIRATORY: No cough, no congestion. No hemoptysis. No shortness of breath. CARDIOVASCULAR: No angina symptoms. No CHF symptoms. No atypical chest pain for CAD. No palpitations. No orthopnea.. GASTROINTESTINAL: No abdominal pain. No nausea or vomiting. No diarrhea or constipation. No hematemesis. No hematochezia. GENITOURINARY: No urgency. No frequency. No dysuria. No hematuria. No obstructive symptoms. No discharge. No pain. No significant abnormal bleeding. MUSCULOSKELETAL: No musculoskeletal pain; no joint swelling. NEUROLOGICAL: Awake, alert, oriented to time, place and person. No headache. No neck pain. No syncope. No seizures. No dizziness. PSYCHIATRIC: Not anxious. No depression. No suicidal thoughts. No homicidal thoughts. SKIN: No rash. No lesions. No wounds. ENDOCRINE: No unexplained weight loss. No weight gain. HEMATOLOGIC/LYMPHATIC: No anemia. No purpura. No petechiae. No prolonged or excessive bleeding. No palpable lymph nodes. PHYSICAL EXAMINATION: GENERAL: The patient is awake, alert and oriented, lying in bed in no distress. VITAL SIGNS: Temperature 97.9 F, Pulse 60, Respiratory Rate 20, BP 132/72, Pulse Ox 99% HEENT: Head normocephalic, atraumatic. Eyes: Extraocular muscles are intact. Pupils are equal, round and reactive to light and accommodation. Ears: No lesions. Nose appeared normal. Throat: No exudate or erythema. NECK: Supple. No JVD, no carotid bruit. No lymphadenopathy or thyromegaly. LUNGS: Decreased breath sounds with few crepitations. Percussion note normal. Chest symmetrical. HEART: S1, S2, no S3. No murmurs. No cyanosis or clubbing. No ascites. Pulses: Dorsalis pedis and posterior tibial pulses +1 to +2 both sides. ABDOMEN: Soft. Non-tender. Bowel sounds active. No CVA tenderness. No mass felt. EXTREMITIES: No edema. Full range of motion of all extremities, equal. NEUROLOGIC: No focal deficit. Cranial nerves II through XII are grossly intact. No headache, no double vision or headache. SKIN: Warm and dry. Intact. Turgor-normal. LYMPHATIC: No palpable lymph nodes/no lymphedema. MUSCULOSKELETAL: Normal joints with no swelling. Muscle tone is normal. LAB REVIEW: 03/13/18 05:10 03/13/18 05:10 03/13/18 05:10: Sodium 135.5 L, Potassium 3.92, Chloride 97.7 L, Carbon Dioxide 34.2 H, Anion Gap 7.52, BUN 21.4 H, Creatinine 0.74, Estimated GFR (MDRD) 74.00 , BUN/Creatinine Ratio 28.91, Glucose 162.7 H, Calcium 9.67, Total Bilirubin 0.33, AST 22.9, ALT 18.6, Alkaline Phosphatase 56.9, Total Protein 6.19 L, Albumin 3.54, Globulin 2.65, Albumin/Globulin Ratio 1.33 03/13/18 05:10: WBC 15.22 H, RBC 4.01 L, Hgb 11.6 L, Hct 35.6 L, MCV 88.8, MCH 28.9, MCHC 32.6, RDW Coeff of Bk 14.4, Plt Count 225, Immature Gran % (Auto) 1.0, Neut % (Auto) 91.7, Lymph % (Auto) 3.7 L, [place] % (Auto) 3.5, Eos % (Auto) 0.0, Baso % (Auto) 0.1, Immature Gran # (Auto) 0.2, Neut # (Auto) 14.0 H, Lymph # (Auto) 0.6, [place] # (Auto) 0.5, Eos # (Auto) 0.0, Baso # (Auto) 0.0 03/12/18 05:15: NT-Pro-B Natriuret Pep 5100.000 H ASSESSMENT: COPD/CHRONIC BRONCHITIS/CHF SEEMS TO BE BETTER CLINICALLY. PLAN: 1. Evaluate LV function. 2. Echocardiogram. Plan and coordination of the patient's care discussed in the presence of Advice Line Rn and nurse. CONDITION: Stable SCRIBED BY: Sharri PARKER scribed while in presence of service performed by Dr. GUMARO ORTIZ on 03/13/18 ([id number])
[2018-03-13] MEDS: BENADRYL PO SCH (20:33)
[2018-03-13] MEDS: BOSWELLIA SERRA PO SCH (20:39)
[2018-03-13] MEDS: D3 PO SCH (20:39)
[2018-03-13] MEDS: GLUCOSAMINE PO SCH (20:39)
[2018-03-13] MEDS: [UNRECOGNIZED DRUG - OTHER] PO SCH (20:39)
[2018-03-14] MEDS: DUONEB NEB SCH ×2 (05:15→10:07)
[2018-03-14] MEDS: SOLU-MEDROL 125 MG IVP SCH (05:59)
[2018-03-14] MEDS: PRILOSEC PO SCH (06:02)
[2018-03-14] MEDS: SYNTHROID PO SCH (06:02)
[2018-03-14 06:20] VITALS: BP 150/78; TEMP 97.4
[2018-03-14] MEDS ORDERED: LASIX TAB PO SCH (06:30)
[2018-03-14] MEDS: SYMBICORT 160-4.5 MCG INHALER IH SCH (09:02)
[2018-03-14] MEDS: SPIRIVA IH SCH (09:02)
[2018-03-14] MEDS: INDERAL PO SCH (09:03)
[2018-03-14] MEDS: ZEBETA PO SCH (09:03)
[2018-03-14] MEDS: NEURONTIN PO SCH (09:03)
[2018-03-14] MEDS: TYLENOL PO SCH (09:03)
[2018-03-14] MEDS: CLARITIN PO SCH (09:04)
[2018-03-14] MEDS: XARELTO PO SCH (09:04)
[2018-03-14] MEDS: MICRO-K CAP PO SCH (09:04)
[2018-03-14] MEDS: CALCIUM 500 + VIT D 200 MG TABLET PO SCH (09:04)
[2018-03-14] MEDS: VITAMIN C PO SCH (09:04)
--- NOTE | 2018-03-14 10:01 | PCM.PROG ---
Attending Provider: ATTENDING PROVIDER: Dr. GUMARO ORTIZ This patient is seen with Sandy Barahona, Nurse Practitioner. DATE OF SERVICE: 03/14/18 SUBJECTIVE: This 87 year old WHITE/ F was hospitalized 03/11/18. The patient is sitting in bed resting comfortably. Cough is nonproductive. Shortness of breath has improved and is back to her baseline. REVIEW OF SYSTEMS: CONSTITUTIONAL: Weakness. No night sweats. No malaise, lethargy. No fever or chills. HEENT: Eyes: No visual changes. No eye pain. No eye discharge. ENT: No runny nose. No epistaxis. No sinus pain. No odynophagia. No congestion. RESPIRATORY: No cough, no congestion. No hemoptysis. Shortness of breath improved. CARDIOVASCULAR: No angina symptoms. No CHF symptoms. No atypical chest pain for CAD. No palpitations. No orthopnea. GASTROINTESTINAL: No abdominal pain. No nausea or vomiting. No diarrhea or constipation. No hematemesis. No hematochezia. GENITOURINARY: No urgency. No frequency. No dysuria. No hematuria. No obstructive symptoms. No discharge. No pain. No significant abnormal bleeding. MUSCULOSKELETAL: No musculoskeletal pain; no joint swelling. NEUROLOGICAL: Awake, alert, oriented to time, place and person. No headache. No neck pain. No syncope. No seizures. No dizziness. PSYCHIATRIC: Not anxious. No depression. No suicidal thoughts. No homicidal thoughts. SKIN: No rash. No lesions. No wounds. ENDOCRINE: No unexplained weight loss. No weight gain. HEMATOLOGIC/LYMPHATIC: No anemia. No purpura. No petechiae. No prolonged or excessive bleeding. No palpable lymph nodes. PHYSICAL EXAMINATION: GENERAL: The patient is awake, alert and oriented, lying in bed in no distress. VITAL SIGNS: Temperature 97.4 F, Pulse 56, Respiratory Rate 20, BP 150/78, Pulse Ox 97% HEENT: Head normocephalic, atraumatic. Eyes: Extraocular muscles are intact. Pupils are equal, round and reactive to light and accommodation. Ears: No lesions. Nose appeared normal. Throat: No exudate or erythema. NECK: Supple. No JVD, no carotid bruit. No lymphadenopathy or thyromegaly. LUNGS: Diminished breath sounds. Clear to auscultation. Percussion note normal. Chest symmetrical. HEART: S1, S2, no S3. No murmurs. No cyanosis or clubbing. No ascites. Pulses: Dorsalis pedis and posterior tibial pulses +1 to +2 both sides. ABDOMEN: Soft. Non-tender. Bowel sounds active. No CVA tenderness. No mass felt. EXTREMITIES: No leg edema. Full range of motion of all extremities, equal. NEUROLOGIC: No focal deficit. Cranial nerves II through XII are grossly intact. No headache, no double vision or headache. SKIN: Not dry. Intact. Turgor-normal. LYMPHATIC: No palpable lymph nodes/no lymphedema. MUSCULOSKELETAL: Normal joints with no swelling. Muscle tone is normal. LAB REVIEW: 03/14/18 05:30 03/14/18 05:30 03/14/18 05:30: Sodium 136.4 L, Potassium 3.69, Chloride 99.0, Carbon Dioxide 29.4, Anion Gap 11.69, BUN 25.3 H, Creatinine 0.70, Estimated GFR (MDRD) 79.00, BUN/Creatinine Ratio 36.14, Glucose 155.6 H, Calcium 9.11, Total Bilirubin 0.37 , AST 19.5, ALT 20.3, Alkaline Phosphatase 50.5 L, Total Protein 6.05 L, Albumin 3.45 L, Globulin 2.60, Albumin/Globulin Ratio 1.32 03/14/18 05:30: WBC 13.02 H, RBC 4.01 L, Hgb 11.5 L, Hct 36.4 L, MCV 90.8, MCH 28.7, MCHC 31.6 L, RDW Coeff of Bk 14.4, Plt Count 201, Immature Gran % (Auto) 0.9, Neut % (Auto) 90.5, Lymph % (Auto) 3.6 L, Turner % (Auto) 4.9, Eos % (Auto) 0.0, Baso % (Auto) 0.1, Immature Gran # (Auto) 0.1, Neut # (Auto) 11.8 H, Lymph # (Auto) 0.5 L, Turner # (Auto) 0.6, Eos # (Auto) 0.0, Baso # (Auto) 0.0 ASSESSMENT: COPD/CHRONIC BRONCHITIS/CHF SEEMS TO BE BETTER CLINICALLY. PLAN: 1. Lasix 40 mg p.o. daily. 2. Prednisone 10 mg daily for 5 days. 3. Will discharge home today. 4. The patient will be seen in the office next week by Dr. Ortiz/Sandy Barahona APRN. Plan and coordination of the patient's care discussed in the presence of Freight Service Inspector and nurse. CONDITION: Stable SCRIBED BY: [employer] Worker scribed while in presence of service performed by Dr. Ortiz/Sandy Barahona APRN on 03/14/18 ([id number])
--- NOTE | 2018-03-14 10:04 | ECHO2D ---
Date of Exam: 03/13/18 Ordering Physician: DR. GUMARO ORTIZ Room # : IDU 3 Reason for Echo: SOB, CHF, COPD M-Mode Normal Adult Results LV Dimensions Normal Adult Results AoV Opening excursions >1.6 >1.6 LVEDD-base- 3.5-5.8 5.7 Ao root dimensions 2.0-3.7 3.0 LVESD-base- 3.1-4.6 L. Atrium dimensions 1.9-3.8 4.1 Post. Wall thickness 0.8-1.1 1.2 IV septum (thickness) 0.7-1.2 1.1 Post. Wall excursion 0.72-1.3 0.9 Septal motion 0.8 Systolic motion R. Ventricular cavity 1.5-2.0 NORMAL LVEF 60% 43% Paradoxical septal wall motion NORMAL 2-D : ENLARGED LEFT ATRIAL CAVITY--NORMAL VALVES--MILDLY HYPOKINETIC LEFT VENTRICLE, NO EFFUSION, NO THROMBUS, NORMAL LEFT VENTRICLE SIZE M-MODE: MV: NORMAL AV: NORMAL TV: NORMAL PV: CHAMBER SIZE: ENLARGED LEFT ATRIAL CAVITY (MILD) WALL MOTION: MILDLY HYPOKINETIC LEFT VENTRICLE PERICARDIUM: NORMAL INTERPRETATION: 1. BORDERLINE LEFT VENTRICLE WITH MILD LEFT ATRIAL CAVITY ENLARGEMENT 2. MILDLY HYPOKINETIC LEFT VENTRICLE WITH EJECTION FRACTION 43% 3. NORMAL VALVES MTDD
--- NOTE | 2018-03-14 10:21 | CM.DICTOOL ---
ADMISSION: 03/11/18 00:32 DISCHARGE: MARCH 14, 2018 DATE OF SERVICE: 03/14/18 FINAL DIAGNOSIS ACUTE RESPIRATORY FAILURE ACUTE BRONCHITIS CHF COPD, OXYGEN DEPENDENT HYPERTENSION ATRIAL FIB (ON XARELTO) ASTHMA GERD COLON CANCER HIATAL HERNIA COLON SURGERY, 2006 HYSTERECTOMY, PARTIAL BILATERAL CATARACT EXTRACTION, 2002 BILATERAL KNEE REPLACEMENT, 2010 RIGHT HIP REPLACEMENT ECHOCARDIOGRAM: MAY 2017: LVH-BORDERLINE HYPOKINETIC SEPTUM WITH LVEF 43% ENLARGED LEFT ATRIAL CAVITY PFT: FEB, 2018: MODERATE RESTRICTIVE/OBSTRUCTIVE LUNG DISEASE LAST VITALS Temp Pulse Resp BP Pulse Ox 97.4 F L 56 L 20 150/78 H 97 03/14/18 06:00 03/14/18 06:00 03/14/18 06:00 03/14/18 06:00 03/14/18 06:00 TAKE THESE MEDICATIONS AT HOME Acetaminophen (Tylenol) 1,000 mg PO DAILY [facility] Last Admin: 03/14/18 09:03 Dose: 1,000 mg Acetaminophen /Dihenhydramine 500-25 mg PO BEDTIME [facility] Last Admin: 03/13/18 20:33 Dose: 500 mg Tylenol Albuterol 1 vial NEB RT QID PRN PRN Reason: Wheezing/Shortness of air Ascorbic Acid (Vitamin C) 1,000 mg PO DAILY [facility] Last Admin: 03/14/18 09:04 Dose: 1,000 mg Bisoprolol Fumarate (Zebeta) 10 mg PO DAILY [facility] Last Admin: 03/14/18 09:03 Dose: 10 mg Budesonide/Formoterol Fumarate (Symbicort 160-4.5 Mcg Inhaler) 2 puff IH BID [facility] Last Admin: 03/14/18 09:02 Dose: 2 puff Calcium/Vitamin D (Calcium 500 + Vit D 200 Mg Tablet) 1 each PO BID [facility] Last Admin: 03/14/18 09:04 Dose: 1 each Omeprazole (Prilosec) 40 mg PO DAILY [facility] Last Admin: 03/14/18 06:02 Dose: 40 mg Gabapentin (Neurontin) 600 mg PO BID [facility] Last Admin: 03/14/18 09:03 Dose: 600 mg Levothyroxine Sodium (Synthroid) 75 mcg PO QDAC [facility] Last Admin: 03/14/18 06:02 Dose: 75 mcg Cetrizine HCL 10 mg PO DAILY [facility] Last Admin: 03/14/18 09:04 Dose: 10 mg Non-Formulary Medication (Calcium Polycarbophil [Fibertab]) 625 mg PO DAILY [facility] Last Admin: 03/13/18 09:38 Dose: Not Given Non-Formulary Medication (Glucosamine/D3/Boswellia Becca [Glucosamine Complex Tablet]) 1,500 mg PO BEDTIME [facility] Last Admin: 03/13/18 20:39 Dose: Not Given Furosemide (Lasix) 40 mg PO QDAC [facility] Last Admin: 03/14/18 06:02 Dose: 40 mg Potassium Chloride (Micro-K Cap) 10 meq PO DAILY [facility] Last Admin: 03/14/18 09:04 Dose: 10 meq Propranolol HCl (Inderal) 20 mg PO BID [facility] Last Admin: 03/14/18 09:03 Dose: 20 mg Rivaroxaban (Xarelto) 15 mg PO DAILY [facility] Last Admin: 03/14/18 09:04 Dose: 15 mg Sodium Chloride ([place] Nasal [place]) 2 spray [place] PRN PRN PRN Reason: Allergy Symptoms Last Admin: 03/11/18 21:15 Dose: 2 spray Tiotropium Medon (Spiriva) 1 cap IH DAILY [facility] Last Admin: 03/14/18 09:02 Dose: 1 cap Tramadol HCl (Ultram) 50 mg PO BID PRN PRN Reason: Moderate pain Vitamin B Complex 1 tab DAILY [facility] Last Admin: Albuterol Sulfate (ProAir HFA) 2 PUFF IH QID PRN Last Admin: ALLERGIES adhesive Adverse Reaction (Verified 07/13/13 23:09) Penicillins Adverse Reaction (Verified 04/27/13 22:31) sulfamethoxazole [From Bactrim] Adverse Reaction (Verified 04/27/13 22:31) trimethoprim [From Bactrim] Adverse Reaction (Verified 04/27/13 22:31) DISCONTINUED MEDICATIONS Lasix 20 mg Daily NEW PRESCRIPTIONS: Lasix 40 mg Daily Prednisone 10 mg Daily for 5 days. Take with Food SMOKING: Not Applicable DISEASE SPECIFIC EDUCATION: Medication Change Use of oral steroids and risk of GI irritation/bone demineralization Appointment LAB REVIEW: 03/14/18 05:30 03/14/18 05:30 03/14/18 05:30: Sodium 136.4 L, Potassium 3.69, Chloride 99.0, Carbon Dioxide 29.4, Anion Gap 11.69, BUN 25.3 H, Creatinine 0.70, Estimated GFR (MDRD) 79.00, BUN/Creatinine Ratio 36.14, Glucose 155.6 H, Calcium 9.11, Total Bilirubin 0.37 , AST 19.5, ALT 20.3, Alkaline Phosphatase 50.5 L, Total Protein 6.05 L, Albumin 3.45 L, Globulin 2.60, Albumin/Globulin Ratio 1.32 03/14/18 05:30: WBC 13.02 H, RBC 4.01 L, Hgb 11.5 L, Hct 36.4 L, MCV 90.8, MCH 28.7, MCHC 31.6 L, RDW Coeff of Bk 14.4, Plt Count 201, Immature Gran % (Auto) 0.9, Neut % (Auto) 90.5, Lymph % (Auto) 3.6 L, Hand % (Auto) 4.9, Eos % (Auto) 0.0, Baso % (Auto) 0.1, Immature Gran # (Auto) 0.1, Neut # (Auto) 11.8 H, Lymph # (Auto) 0.5 L, Hand # (Auto) 0.6, Eos # (Auto) 0.0, Baso # (Auto) 0.0 PLAN: Discharge home Diet: Low Salt Activity: Resume as tolerated Use oxygen at 2 liters continuously (has at home) Continue to use nebulizer treatments up to 4 times a day as needed for shortness of air/wheezing Continue home medications as listed on nursing discharge information sheet An appointment is scheduled with Dr. Mcbride/Sandy Barahona APRN on at 9:30 am Ms. Joya is alert and oriented x 3. She is independent with ADL's. Ms. Joya transfers per self from the bed to the chair and is ambulatory in the room with use of a rolling walker and oxygen at 2 liters. Her gait is steady and without loss of balance noted. She is continent of bladder and bowel, but reports urgency and frequency of urination due to supervisor winter administration of Lasix. Meal intakes are good at 75-100%. Skin turgor is good and skin is free of decubitus ulcers or irritation. Home medical equipment consists of continuous oxygen, nebulizer, walker, wheelchair, hospital bed and shower chair. Everett Mcbride MD Sandy Barahona, EXPLOSIVES TRUCK DRIVER
--- NOTE | 2018-03-15 09:58 | HP ---
DATE OF SERVICE: 03/11/18 HISTORY OF PRESENT ILLNESS: This is an 87-year-old white female who presented to the emergency room with shortness of breath. Her initial BNP was around 4,000 and had previously been several months before 300. She did not have any or very minimal leg edema. PAST MEDICAL HISTORY: Chronic bronchitis History of CHF COPD, oxygen dependent Hypertension Atrial fibrillation on Xarelto Asthma GERD History of colon cancer Hiatal hernia Borderline LVH Hypokinetic septum Enlarged left atrial cavity PAST SURGICAL HISTORY: Colon surgery 2007 Partial hysterectomy Bilateral cataracts Bilateral knees Right hip replacement REVIEW OF SYSTEMS: CONSTITUTIONAL: Positive for weakness. No night sweats. No malaise, lethargy. No fever or chills. HEENT: Eyes: No visual changes. No eye pain. No eye discharge. ENT: No runny nose. No epistaxis. No sinus pain. No sore throat. No odynophagia. No ear pain. No congestion. RESPIRATORY: No cough, no congestion. No hemoptysis. Positive for shortness of breath. CARDIOVASCULAR: No angina symptoms. No CHF symptoms. No atypical chest pain for CAD. No palpitations. No PND. No orthopnea. GASTROINTESTINAL: No abdominal pain. No nausea or vomiting. No diarrhea or constipation. No hematemesis. No hematochezia. GENITOURINARY: No urgency. No frequency. No dysuria. No hematuria. No obstructive symptoms. No discharge. No pain. No significant abnormal bleeding. MUSCULOSKELETAL: No musculoskeletal pain. No joint swelling. No arthritis. NEUROLOGICAL: No headache. No neck pain. No syncope. No seizures. No dizziness. PSYCHIATRIC: Not anxious. No depression. No suicidal thoughts. No homicidal thoughts. SKIN: No rash. No lesions. No wounds. ENDOCRINE: No unexplained weight loss. No weight gain. HEMATOLOGIC/LYMPHATIC: No anemia. No purpura. No petechiae. No prolonged or excessive bleeding. No palpable lymph nodes. PERSONAL/FAMILY/SOCIAL HISTORY: The patient lives at home, is , lives with her daughter, needs some assistance with ADLs, can walk minimally with a walker. MEDICATIONS: (HOME) Vitamin B Complex one tab p.o. daily Fibertab 625 mg p.o. daily Prilosec 40 mg p.o. daily Gabapentin 600 mg p.o. b.i.d. Albuterol one vial INH q.i.d. p.r.n. Glucosamine/D3/Boswellia Becca 1,500 mg p.o. bedtime Spiriva 18 mcg INH daily Cetirizine HCI 10 mg p.o. daily Budesonide/Formoterol (Symbicort) two puff INH b.i.d. Ascorbid Acid 1,000 mg p.o. daily Mapap 1,000 mg p.o. daily Calcium Carbonate/Vitamin D3 one tab p.o. b.i.d. Xarelto 15 mg one tablet p.o. daily Tramadol 50 mg one tab p.o. b.i.d. p.r.n. Acetaminophen/Diphenhydramine one tab p.o. bedtime K-Tab ER 10 mEq p.o. daily Bisoprolol Fumarate 10 mg p.o. daily Lasix 20 mg p.o. daily Propranolol 20 mg p.o. b.i.d. Synthroid 75 mcg p.o. q.d. a.c. ALLERGIES: PENICILLINS, ADHESIVE, SULFAMETHOXAZOLE, TRIMETHOPRIM PHYSICAL EXAMINATION: GENERAL: The patient is alert oriented times three in mild respiratory distress. VITAL SIGNS: Temperature 98, pulse 62, BP 137/84, respiratory rate 20, 02 sat 95 on 2L. HEENT: Head normocephalic, atraumatic. Eyes: Extraocular muscles are intact. Pupils are equal, round and reactive to light and accommodation. Ears: No lesions. Nose appeared normal. Throat: No exudate or erythema. NECK: Supple. No JVD, no carotid bruit. No lymphadenopathy or thyromegaly. LUNGS: Severely diminished breath sounds. Clear to auscultation. Percussion note normal. Chest symmetrical. HEART: Irregular heart rate. S1, S2, no S3. No murmurs. No cyanosis or clubbing. No ascites. Pulses: Dorsalis pedis and posterior tibial pulses +1 to +2 bilaterally. ABDOMEN: Soft. Nontender. Bowel sounds active. No CVA tenderness. No mass felt. EXTREMITIES: Trace bilateral leg edema. Full range of motion of all extremities, equal. NEUROLOGIC: No focal deficit. Cranial nerves II through XII are grossly intact. No headache, no double vision or headache. SKIN: Not dry. Intact. Turgor - normal. LYMPHATIC: No palpable lymph nodes/no lymphedema. MUSCULOSKELETAL: Normal joints with no swelling. Muscle tone is normal. ASSESSMENT: 1. ACUTE CHF 2. COPD EXACERBATION 3. ACUTE RESPIRATORY FAILURE 4. ACUTE BRONCHITIS 5. HYPERTENSION 6. ATRIAL FIBRILLATION 7. OBESITY 8. GERD 9. HISTORY OF COLON CANCER 10. LVH 11. HYPOKINETIC SEPTUM PLAN: 1. We will admit to [facility]. 2. Routine telemetry orders. 3. CBC, CMP daily. 4. 2D echo. 5. Repeat BNP tomorrow. 6. Continue all home medications. 7. IV Lasix 40 mg daily. 8. No IV fluids. 9. Low sodium diet. 10. Elevate legs. 11. Xopenex nebs q.6hr BERNICE. 12. Solu-Medrol 50 mg IV q.12hr. 13. Oxygen at 1 to 2L, keep oxygen saturation greater than 90%. 14. Will follow closely. TIME SPENT: More than 70 minutes. MTDD
--- NOTE | 2018-03-15 11:35 | PN ---
DATE OF SERVICE: 03/14/18 SUBJECTIVE: The patient is feeling well. No symptoms of CHF. Shortness of breath has improved a lot. The patient's condition is a lot better. She will be discharged today. She will be discharged on increased dose of Lasix 40 mg p.o. daily instead of 20. Elevate the legs. Continue nebs treatment. Condition is stable. TIME SPENT: More than 30 minutes. Plan and coordination of the patient's care discussed in the presence of nurse. RUDY
--- NOTE | 2018-03-15 11:37 | PN ---
CODING FOR BILLING 03/11/18 ADMISSION DAY - LEVEL 5 03/12/18 INTERMEDIATE 03/13/18 INTERMEDIATE 03/14/18 DISCHARGE MTDD
--- NOTE | 2018-03-15 14:08 | DS ---
DATE OF SERVICE: 03/14/18 FINAL DIAGNOSIS: 1. ACUTE RESPIRATORY FAILURE 2. ACUTE BRONCHITIS 3. CHF 4. COPD, OXYGEN DEPENDENT 5. HYPERTENSION 6. ATRIAL FIBRILLATION (ON XARELTO) 7. ASTHMA 8. GERD 9. COLON CANCER 10. HIATAL HERNIA 11. COLON SURGERY, 2006 12. HYSTERECTOMY, PARTIAL 13. BILATERAL CATARACT EXTRACTION, 2002 14. BILATERAL KNEE REPLACEMENT, 2010 15. RIGHT HIP REPLACEMENT 16. ECHOCARDIOGRAM MAY 2017 17. LVH-BORDERLINE 18. HYPOKINETIC SEPTUM WITH LVEF 43% 19. ENLARGED LEFT ATRIAL CAVITY 20. PFT, FEBRUARY 2018, MODERATE RESTRICTIVE/OBSTRUCTIVE LUNG DISEASE DISCHARGE INSTRUCTIONS: 1. Followup appointment is scheduled with Dr. Mcbride/Sandy Barahona APRN on at 9:30 a.m. 2. Continue to use nebulizer treatments up to four times a day as needed for shortness of air/wheezing. MEDICATIONS AT DISCHARGE: Acetaminophen/Tylenol 1,000 mg p.o. daily BERNICE Acetaminophen/Diphenhydramine 500-25 mg p.o. bedtime BERNICE Albuterol one vial neb RT q.i.d. p.r.n. Vitamin C 1,000 mg p.o. daily [facility]ERN[facility] Zebeta 10 mg p.o. daily [facility]ERN[facility] Budesonide/Formoterol two puff IH b.i.d. BERNICE Calcium/Vitamin D one each p.o. b.i.d. BERN[facility] Omeprazole (Prilosec) 40 mg p.o. daily [facility]ERN[facility] Gabapentin (Neurontin) 600 mg p.o. b.i.d. BERNICE Synthroid 75 mcg p.o. q.d a.c. [facility]ERN[facility] Cetrizine 10 mg p.o. daily [facility]ERN[facility] Fibertab 625 mg p.o. daily [facility]ERN[facility] Glucosamine/D3/Boswellia Sera 1,500 mg p.o. bedtime BERNICE Lasix 40 mg p.o. q.d. a.c. BERNICE Micro-K 10 mEq p.o. daily [facility]ERN[facility] Inderal 20 mg p.o. b.i.d. BERNICE Xarelto 15 mg p.o. daily [facility]ERN[facility] [place] Nasal [place] two spray [place] p.r.n. Spiriva one cap IH daily BERNICE Ultram 50 mg p.o. b.i.d. p.r.n. Vitamin B Complex one tab daily [facility]ERN[facility] Albuterol (ProAir HFA) two puff IH q.i.d. p.r.n. DISCONTINUED MEDICATIONS: Lasix 20 mg daily NEW PRESCRIPTIONS: Lasix 40 mg daily Prednisone 10 mg daily for 5 days. Take with food. DIET INSTRUCTIONS: Low Salt ACTIVITY: Resume as tolerated; use oxygen at 2L continuously (has at home) SMOKING: N/A DISEASE SPECIFIC EDUCATION: Medication change Use of oral steroids and risk of GI irritation/bone demineralization Appointment HOSPITAL COURSE: 87-year-old white female who presented to the emergency room with acute shortness of breath. She has a history of COPD which is oxygen dependent. BNP was significantly elevated around 4000 on admission, previously a few months ago per hospitalization it was 398. Dr. Mcbride performed an echo which essentially had minimal change from May 2017 with an ejection fraction of 43 %, hypokinetic septum, LVH, enlarged left atrial cavity. The patient does have a history of atrial fibrillation, is on Xarelto. When she was admitted she was given IV Lasix 40 mg daily. Home medications were continued. She was started on Solu-Medrol 50 mg q.12hr with oxygen via nasal cannula. Over the course of the past 48 hours her condition significantly improved. For the past 24 hours she has been able to get up in her room with her usual baseline shortness of breath. Chest x-ray had revealed no pneumonia, changes associated with COPD. She had trace leg edema on admission. She has no leg edema at this time. Blood pressure has been controlled. She had previously been on 20 mg of Lasix p.o. daily. We will increase this to 40 mg of Lasix p.o. daily. She is to continue to use her nebulizer treatments four times a day. She has been eating 75 to 100 % of her meals, fall precautions have been discussed. She uses a rolling walker. We will followup with her at her regular appointment scheduled for next in the office. She is to weigh daily, report if she has a weight gain greater than 3 lbs. Discharge home in stable condition. TIME SPENT: More than 60 minutes. MTDD
== END 2018-03-14 11:00 | disposition home or self-care (01) | DRG 204 ==
LOC: ED 22:44 → SCU 03-11 00:32
PROVIDERS: ADMIT Internal Medicine; ATTEND Internal Medicine
DX: R05 Cough (principal); J96.00 Acute respiratory failure, unspecified whether with hypoxia or hypercapnia; J44.1 Chronic obstructive pulmonary disease with (acute) exacerbation; J45.909 Unspecified asthma, uncomplicated; J40 Bronchitis, not specified as acute or chronic; R11.0 Nausea; R07.9 Chest pain, unspecified; R06.2 Wheezing; I50.9 Heart failure, unspecified; I10 Essential (primary) hypertension; I48.91 Unspecified atrial fibrillation; K21.9 Gastro-esophageal reflux disease without esophagitis; E66.9 Obesity, unspecified; Z79.01 Long term (current) use of anticoagulants; Z99.81 Dependence on supplemental oxygen
CPT/HCPCS: 36415; 80053; 82550; 82803; 83605; 83880; 84145; 84484; 85025; 87040; 87081; 93005; 93010; 94640; 96374; 96375; 99284